=== PATIENT | male | born 1955 | race Caucasian/White ===

== ENCOUNTER 2017-01-07 14:15 | Emergency (ER) | payer OTHER ==
[~2017-01-07] VITALS: Ht 188 cm; Wt 73.0 kg
[2017-01-07 14:21] VITALS: BP 167/96; PULSE 73; RESP 18; TEMP 97.6; O2SAT 98
--- NOTE | 2017-01-07 15:06 | PD ---
HPI Chief Complaint: OD/ Ingestion Time Seen by Provider: 14:56 Travel History International Travel<30 days: No Contact w/Intl Traveler<30days: No Traveled to known affect area: No History of Present Illness HPI 61-year-old male was brought in by EMS after patient was found unresponsive at the friend's house. Patient states that he was drinking alcohol and smoking week this morning. Patient stated that he passed out. Patient states that he hit the forehead during the episode. Patient stated that is a mild aching headache on the left forehead. Patient denies any visual change. Patient denies any neck pain. Patient denies any chest pain or shortness of breath. Patient denies abdominal pain. Patient denies any focal weakness or numbness of extremity. Patient denies any other illicit drug abuse. Patient was given Narcan at the scene by EMS with complete covering of the mental status. PFSH Past Medical History Medical History: Denies Significant Hx Cancer: No Cardiovascular Problems: No Diminished Hearing: No Endocrine: No Gastrointestinal Disorders: No Genitourinary: No Hepatitis: Yes (c) Immune Disorder: No Implanted Vascular Access Dvce: No Musculoskeletal: Yes Neurologic: No Psychiatric: No Reproductive: No Respiratory: Yes ("JUST HAD PNEUMONIA") Influenza Vaccination: No PNEUMOCCOCAL Vaccine (Year): 1 Past Surgical History Other Surgery: No Social History Alcohol Use: Yes (BEER DAILY) Tobacco Use: Yes (1/2 PPD) Substance Use: Yes (MARIJUANA) Allergies-Medications (Allergen,Severity, Reaction): Coded Allergies: Codeine (Verified Allergy, Severe, Hives, 01/07/17) Tylenol (Verified Adverse Reaction, Intermediate, Nausea/Vomiting, 01/07/17 ) *MDRO Multi-Drug Resistant Organism (Verified Adverse Reaction, Unknown, ) 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 Reported Meds & Prescriptions Reported Meds & Active Scripts Active No Active Prescriptions or Reported Medications Review of Systems General / Constitutional: No: Fever Eyes: No: Visual changes HENT: Positive: Headaches Cardiovascular: No: Chest Pain or Discomfort Respiratory: No: Shortness of Breath Gastrointestinal: No: Abdominal Pain Genitourinary: No: Dysuria Musculoskeletal: No: Pain Skin: No Rash Neurologic: No: Weakness Psychiatric: No: Depression Endocrine: No: Polydipsia Hematologic/Lymphatic: No: Easy Bruising Physical Exam Narrative GENERAL: Well-nourished, well-developed patient. SKIN: Warm and dry. HEAD: Normocephalic. EYES: No scleral icterus. No injection or drainage. Pupils 2 mm equal reactive. NECK: Supple, trachea midline. No JVD or lymphadenopathy. CARDIOVASCULAR: Regular rate and rhythm without murmurs, gallops, or rubs. RESPIRATORY: Breath sounds equal bilaterally. No accessory muscle use. GASTROINTESTINAL: Abdomen soft, non-tender, nondistended. MUSCULOSKELETAL: No cyanosis, or edema. BACK: Nontender without obvious deformity. No CVA tenderness. Neurologic exam normal. Data Data Last Documented VS Vital Signs Date Time Temp Pulse Resp B/P Pulse Ox O2 Delivery O2 Flow Rate FiO2 01/07/17 15:16 73 18 130/82 97 Room Air 01/07/17 14:21 97.6 MDM Medical Decision Making Medical Screen Exam Complete: Yes Emergency Medical Condition: Yes Differential Diagnosis Differential diagnosis including substance-induced mood disorder, electrolyte abnormality, dehydration, TIA, CVA. Narrative Course 61-year-old male with transient altered mental status. Patient admits to alcohol and pot this morning. Patient responded to Narcan. Patient refused any treatment including x-ray or blood test today. Patient wants to leave. Diagnosis Primary Impression: Syncope Qualified Code: R55 - Syncope, unspecified syncope type Patient Instructions: General Instructions Additional Instructions: Patient refused workup today. Patient advised to follow-up with local physician. Return as needed. Med/Other Pt SpecificInfo: No Change to Meds Scripts No Active Prescriptions or Reported Meds Disposition: 01 DISCHARGE HOME Condition: Stable Giacomo Lee MD Jan 07, 2017 15:06
[2017-01-07 15:16] VITALS: BP 130/82; PULSE 73; RESP 18; O2SAT 97
== END 2017-01-07 15:40 | disposition home or self-care (01) ==
LOC: NEPA 14:15
DX: R55 Syncope and collapse (principal); R51 Headache; F17.210 Nicotine dependence, cigarettes, uncomplicated
CPT/HCPCS: 99284

== ENCOUNTER 2017-02-28 23:00 | Observation (INO) | payer OTHER ==
[~2017-02-28] VITALS: Ht 182.9 cm; Wt 78.5 kg
[2017-02-28 23:09] VITALS: BP 166/86; PULSE 128; RESP 26; TEMP 103; O2SAT 96
[2017-02-28] MEDS ORDERED: SODIUM CHLOR 0.9% 1000 ML INJ 1,000 ML IV ONE (23:30)
[2017-02-28] MEDS ORDERED: ONDANSETRON HCL 4 MG/2 ML VIAL IV ONE (23:30)
[2017-02-28] MEDS ORDERED: VANCOMYCIN INJ 1,000 MG in SODIUM CHLOR 0.9% 250 ML INJ 250 ML IV ONE (23:30)
[2017-02-28] MEDS ORDERED: PIPERACIL-TAZO 3.375 GM PREMIX 50 ML IV ONE (23:30)
[2017-02-28 23:32] VITALS: O2SAT 96
--- NOTE | 2017-02-28 23:36 | PD ---
HPI Chief Complaint: Altered Mental Status Time Seen by Provider: 23:08 Travel History International Travel<30 days: No Contact w/Intl Traveler<30days: No Traveled to known affect area: No History of Present Illness HPI The patient is a 61 year old male who presents to the [facility] emergency department with a history of reportedly not feeling well over the last 2-3 days. According to ambulance services the patient had been experiencing confusion today, thus ambulance services were called. It is unclear who called ambulance services. The patient on arrival is oriented to person, place, and time, however he is drowsy and has difficulty providing his history. He is tremulous on examination and tachycardic. The patient's temperature is reportedly 103. The patient's blood sugar prior to arrival was reportedly 91. The patient has emesis along his clothes and the right side of his ruano. The patient upon ambulance services arrival was noted to have wheezing. The patient reports that he smokes a pack of cigarettes per day. The patient en route to this facility was given 3 albuterol nebulizer treatments. The patient reportedly drank 3 alcoholic beverages today. The patient is drowsy on arrival. The patient has difficulty staying awake to answer questions. He continually has to be redirected and awakened to follow commands. Therefore, the patient's history is limited and was reviewed through the electronic medical record. [facility] Past Medical History Narrative Medical The patient's past medical history is significant for hepatitis C, tobacco use, history of pneumonia. Cancer: No Cardiovascular Problems: No Diminished Hearing: No Endocrine: No Gastrointestinal Disorders: No Genitourinary: No Hepatitis: Yes (c) Immune Disorder: No Implanted Vascular Access Dvce: No Musculoskeletal: Yes Neurologic: No Psychiatric: No Reproductive: No Respiratory: Yes ("JUST HAD PNEUMONIA") PNEUMOCCOCAL Vaccine (Year): 1 ?: Not Past Surgical History Surgical History: No Previous Surgery Other Surgery: No Social History Alcohol Use: Yes (BEER DAILY) Tobacco Use: Yes (1/2 PPD) Substance Use: Yes (MARIJUANA) Allergies-Medications (Allergen,Severity, Reaction): Coded Allergies: Codeine (Verified Allergy, Severe, Hives, 01/07/17) Tylenol (Verified Adverse Reaction, Intermediate, Nausea/Vomiting, 01/07/17 ) *MDRO Multi-Drug Resistant Organism (Verified Adverse Reaction, Unknown, ) 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 Reported Meds & Prescriptions Reported Meds & Active Scripts Active No Active Prescriptions or Reported Medications Review of Systems Except as stated in HPI: all other systems reviewed are Neg General / Constitutional: Positive: Fever Eyes: No: Visual changes HENT: Positive: Congestion, No: Headaches, Neck Stiffness, Neck Pain Cardiovascular: Positive: Dyspnea on exertion, No: Chest Pain or Discomfort Respiratory: Positive: Cough, Shortness of Breath, Wheezing Gastrointestinal: Positive: Nausea, Vomiting, No: Abdominal Pain Genitourinary: No: Dysuria Musculoskeletal: No: Pain Skin: No Rash Neurologic: Positive: Weakness (generalized weakness), Tremor, Change in Mentation, No: Focal Abnormalities, Slurred Speech, Sensory Disturbance Psychiatric: No: Depression Endocrine: No: Polydipsia Hematologic/Lymphatic: No: Easy Bruising Physical Exam Narrative General: The patient is a well-developed well-nourished male, in no acute distress. Head and Neck exam: Head is normocephalic atraumatic. Eyes: EOMI, pupils are equal round and reactive to light. Nose: Midline septum with pink mucous membranes Mouth: Dentition unremarkable. Moist mucus membranes. Posterior oropharynx is not erythematous. No tonsillar hypertrophy. Uvula midline. Airway patent. The patient is noted to have emesis that is dried in the right side of his ruano. Neck: No palpable lymphadenopathy. No nuchal rigidity. No thyromegaly. Cardiovascular: Sinus tachycardia in the 1 teens to 120s without murmurs, gallops, or rubs. No pulse deficit to the extremities and simultaneous auscultation and palpation of his radial artery. Lungs: Clear to auscultation bilaterally. No wheezes, rhonchi, or rales. The patient is in the process of receiving a nebulizer treatment on initial examination. Abdomen: Soft, without tenderness to palpation in all 4 quadrants of the abdomen. No guarding, rebound, or rigidity. No tenderness on palpation of McBurney's point. Normal bowel sounds are audible. Negative Jackson sign. Extremities: No clubbing, cyanosis, or edema. 2+ pulses in all 4 extremities. No calf tenderness on palpation. Back: No spinous process tenderness to palpation. No costovertebral angle tenderness to palpation. Neurologic Exam: The patient is oriented to person, place, time, and situation. The patient does however have difficulty staying awake to answer questions. The patient is tremulous on examination. The patient has cranial nerves II through XII that are intact. The patient's strength is 5 over 5 in all 4 extremities. The patient has intact sensation over all dermatomes. Skin Exam: No rash noted. Intact skin that is warm and dry. Data Data Last Documented VS Vital Signs Date Time Temp Pulse Resp B/P Pulse Ox O2 Delivery O2 Flow Rate FiO2 03/01/17 00:30 100.1 03/01/17 00:29 119 18 170/74 94 Nasal Cannula 4 Orders Electrocardiogram (02/28/17 23:18) Complete Blood Count With Diff (02/28/17 23:18) Comprehensive Metabolic Panel (02/28/17 23:18) Creatine Kinase (Cpk) (02/28/17 23:18) Ckmb (Isoenzyme) Profile (02/28/17 23:18) Troponin I (02/28/17 23:18) Prothrombin Time / Inr (Pt) (02/28/17 23:18) Act Partial Throm Time (Ptt) (02/28/17 23:18) Blood Culture (02/28/17 23:18) C-Reactive Protein (Crp) (02/28/17 23:18) Lipase (02/28/17 23:18) Urinalysis - C+S If Indicated (02/28/17 23:18) Magnesium (Mg) (02/28/17 23:18) Ammonia (02/28/17 23:18) Influenzae A/B Antigen (02/28/17 23:18) Chest, Single Ap (02/28/17 23:18) Ct Brain W/O Iv Contrast(Rout) (02/28/17 23:18) Iv Access Insert/Monitor (02/28/17 23:18) Ecg Monitoring (02/28/17 23:18) Oximetry (02/28/17 23:18) Drug Screen, Random Urine (02/28/17 23:18) Alcohol (Ethanol) (02/28/17 23:18) Salicylates (Aspirin) (02/28/17 23:18) Tylenol (Acetaminophen) (02/28/17 23:18) Sodium Chlor 0.9% 1000 Ml Inj (Ns 1000 M (02/28/17 23:30) Ondansetron Inj (Zofran Inj) (02/28/17 23:30) Lactic Acid Sepsis Protocol (02/28/17 23:18) Piperacil-Tazo 3.375 Gm Premix (Zosyn 3. (02/28/17 23:30) Vancomycin Inj (Vancomycin Inj) (02/28/17 23:30) Ibuprofen (Motrin) (02/28/17 23:45) Lactulose Liq (Lactulose Liq) (03/01/17 00:30) Sodium Chlor 0.9% 1000 Ml Inj (Ns 1000 M (03/01/17 00:30) CKMB (02/28/17 23:51) CKMB% (02/28/17 23:51) Admit Order (Ed Use Only) (03/01/17 01:27) Labs Laboratory Tests Test 02/28/17 02/28/17 03/01/17 23:15 23:51 01:17 White Blood Count 5.3 TH/MM3 Red Blood Count 4.43 MIL/MM3 Hemoglobin 15.3 GM/DL Hematocrit 44.8 % Mean Corpuscular Volume 101.1 FL Mean Corpuscular Hemoglobin 34.5 PG Mean Corpuscular Hemoglobin 34.1 % Concent Red Cell Distribution Width 13.0 % Platelet Count 88 TH/MM3 Mean Platelet Volume 9.5 FL Neutrophils (%) (Auto) 70.4 % Lymphocytes (%) (Auto) 18.4 % Monocytes (%) (Auto) 10.3 % Eosinophils (%) (Auto) 0.1 % Basophils (%) (Auto) 0.8 % Neutrophils # (Auto) 3.7 TH/MM3 Lymphocytes # (Auto) 1.0 TH/MM3 Monocytes # (Auto) 0.5 TH/MM3 Eosinophils # (Auto) 0.0 TH/MM3 Basophils # (Auto) 0.0 TH/MM3 CBC Comment AUTO DIFF Differential Total Cells 100 Counted Neutrophils % (Manual) 68 % Band Neutrophils % 9 % Lymphocytes % 12 % Monocytes % 9 % Neutrophils # (Manual) 4.2 TH/MM3 Metamyelocytes 2 % Differential Comment FINAL DIFF MANUAL Platelet Estimate LOW Platelet Morphology Comment NORMAL Red Cell Morphology Comment NORMAL Prothrombin Time 11.0 SEC Prothromb Time International 1.0 RATIO Ratio Activated Partial 28.6 SEC Thromboplast Time Lactic Acid Level 2.3 mmol/L Ammonia 62 MCMOL/L Salicylates Level LESS THAN 1.7 MG/DL Sodium Level 136 MEQ/L Potassium Level 3.7 MEQ/L Chloride Level 102 MEQ/L Carbon Dioxide Level 25.2 MEQ/L Anion Gap 9 MEQ/L Blood Urea Nitrogen 13 MG/DL Creatinine 0.89 MG/DL Estimat Glomerular Filtration 86 ML/MIN Rate Random Glucose 98 MG/DL Calcium Level 8.2 MG/DL Magnesium Level 1.7 MG/DL Total Bilirubin 0.4 MG/DL Aspartate Amino Transf 74 U/L (AST/SGOT) Alanine Aminotransferase 62 U/L (ALT/SGPT) Alkaline Phosphatase 49 U/L Total Creatine Kinase 361 U/L Creatine Kinase MB 1.1 NG/ML Creatine Kinase MB % 0.3 % Troponin I 0.04 NG/ML C-Reactive Protein 0.69 MG/DL Total Protein 6.8 GM/DL Albumin 2.9 GM/DL Lipase 73 U/L Acetaminophen Level LESS THAN 2.0 MCG/ML Ethyl Alcohol Level LESS THAN 3 MG/DL Urine Opiates Screen POS Urine Barbiturates Screen NEG Urine Amphetamines Screen NEG Urine Benzodiazepines Screen NEG Urine Cocaine Screen NEG Urine Cannabinoids Screen POS MDM Medical Decision Making Medical Screen Exam Complete: Yes Emergency Medical Condition: Yes Medical Record Reviewed: Yes Interpretation(s) Last Impressions Head CT 02/28/172317 Signed Impressions: Service Date/Time: Tuesday, February 28, 2017 23:34 - CONCLUSION: 1. No acute intracranial abnormality. 2. Chronic paranasal sinus disease. Aldo Renteria Jr., MD Chest X-Ray 02/28/172317 Signed Impressions: Service Date/Time: Tuesday, February 28, 2017 23:44 - CONCLUSION: Left lower lobe infiltrate. Aldo Renteria Jr., MD Differential Diagnosis Pneumonia, versus hepatic encephalopathy, versus sepsis related encephalopathy, versus encephalitis, versus intracranial abnormality, versus intoxication, versus withdrawal syndrome Narrative Course During the course of the patients emergency department visit, the patients history, examination, and differential diagnosis were reviewed with the patient. The patient had IV access obtained and blood work sent for analysis. The patient was placed on a environmental monitoring technician with oximetry and blood pressure monitoring. An EKG was done on arrival. The patient's EKG reveals a sinus rhythm, sinus tachycardia with a rate of 126, no acute ST segment elevation or depression. A chest x-ray, pelvic x-ray was ordered. Blood cultures 2 were ordered. Influenza swab was ordered. Lactic acid will be sent per sepsis protocol. The patient was initially provided normal saline 1 L IV fluid bolus, Zosyn 3.375 g IV, vancomycin 1 g IV, Zofran 4 mg IV times one. The patient was given ibuprofen for fever. The patients laboratory studies were reviewed and remarkable for a white count of 5.3, hemoglobin 15.3, platelets 88 with 70.4 neutrophils, monocytes 10.3, CMP is remarkable for a GFR of 86, calcium 8.2, AST 74, CPK 361, C-reactive protein 0.69, lipase 73, ammonia level elevated at 62, therefore lactulose was administered. Lactic acid initially 2.3 which went down to 0.9 on repeat analysis after second liter of normal saline IV fluids. PT PTT within normal limits. Urine drug screen is positive for opiates, cannabinoids, acetaminophen less than 2, alcohol level less than 3, salicylate less than 1.7. Radiology studies were reviewed and remarkable for CT scan of the brain shows no acute intracranial abnormality, except for chronic paranasal sinus inflammation. Chest x-ray reveals a left lower lobe infiltrate. The patients results were discussed with the patient, including the plan of care. I explained that further testing and/ or monitoring is indicated based on the patients history, examination, and/ or laboratory findings. Therefore, I recommended admission for additional evaluation. The patient expressed understanding and was agreeable with this plan. The patient was admitted to the hospital in guarded condition and [facility] Critical Care Narrative Aggregate critical care time was 33 minutes. Time to perform other separately billable procedures was not included in the critical care time. My time did not include minutes spent treating any other patients simultaneously or on activities that did not directly contribute to the patient's treatment. The services I provided to this patient were to treat and/or prevent clinically significant deterioration that could result in: Cardiovascular collapse, versus respiratory failure I provided critical care services requiring my management, as noted below: Chart data review, documentation time, medication orders and management, vital sign assessments/reviewing monitor data, ordering and reviewing lab tests, ordering and interpreting/reviewing x-rays and diagnostic studies, care of the patient and discussion of the patient with the admitting physicians. Physician Communication Physician Communication The patient's case was discussed with Dr. Lopez who did agree to admit the patient for further evaluation and treatment at this time. Diagnosis Primary Impression: Altered mental status Qualified Code: R41.0 - Delirium Additional Impressions: Pneumonia Qualified Code: J18.1 - Pneumonia of left lower lobe due to infectious organism Hepatic encephalopathy Admitting Information Admitting Physician Requests: Admit Scripts No Active Prescriptions or Reported Meds Lina Bryson MD February 28, 2017 23:36
--- NOTE | 2017-02-28 23:44 | RADRPT ---
EXAM DATE/TIME: 02/28/2017 23:34 [facility] COMPARISON: CT BRAIN W/O CONTRAST, October 20, 2016, 21:00. INDICATIONS : Altered mental status. RADIATION DOSE: 55.75 CTDIvol (mGy) MEDICAL HISTORY : Hepatitis C. SURGICAL HISTORY : None. ENCOUNTER: Initial ACUITY: 1 day PAIN SCALE: 0/10 LOCATION: cranial TECHNIQUE: Multiple contiguous axial images were obtained of the head. Using automated exposure control and adj ustment of the mA and/or kV according to patient size, radiation dose was kept as low as reasonably a chievable to obtain optimal diagnostic quality images. FINDINGS: CEREBRUM: The ventricles are normal for age. No evidence of midline shift, mass lesion, hemorrhage or acute in farction. No extra-axial fluid collections are seen. POSTERIOR FOSSA: The cerebellum and brainstem are intact. The 4th ventricle is midline. The cerebellopontine angle i s unremarkable. EXTRACRANIAL: The visualized portion of the orbits is intact. Mucosal thickening is seen involving the ethmoid air cells and sphenoid sinuses bilaterally. Complete opacification of the left frontal sinus. Mastoid air cells are clear. SKULL: The calvaria is intact. No evidence of skull fracture. CONCLUSION: 1. No acute intracranial abnormality. 2. Chronic paranasal sinus disease. Aldo Renteria Jr., MD on February 28, 2017 at 23:41 Board Certified Radiologist. This report was verified electronically.
[2017-02-28] MEDS ORDERED: IBUPROFEN 400 MG TAB PO ONE (23:45)
[2017-02-28 23:46] LABS: AUTOMATED NEUTROPHIL # 3.7 TH/MM3 (1.8-7.7); BASOPHIL % 0.8 % (0.0-2.0); EOSINOPHIL % 0.1 % (0.0-4.0); HEMATOCRIT 44.8 % (39.0-51.0); HEMO FLAGS AUTO DIFF; LYMPH % 18.4 % (9.0-44.0); MEAN CELL VOLUME 101.1 FL (80.0-100.0); MEAN CORPUSCULAR HEMOGLOBIN 34.5 PG (27.0-34.0); MEAN CORPUSCULAR HGB CONC 34.1 % (32.0-36.0); MONO % 10.3 % (0.0-8.0); NEUT % 70.4 % (16.0-70.0); PLATELET COUNT 88 TH/MM3 (150-450); RED BLOOD COUNT 4.43 MIL/MM3 (4.50-5.90); WHITE BLOOD COUNT 5.3 TH/MM3 (4.0-11.0)
[2017-03-01] VITALS (29 sets, daily range): BP systolic 107–170; BP diastolic 55–86; PULSE 57–119; RESP 16–18; TEMP 97.5–100.1; O2SAT 91–99
--- NOTE | 2017-03-01 | RADRPT ---
EXAM DATE/TIME: 02/28/2017 23:44 [facility] COMPARISON: CHEST SINGLE AP, June 21, 2012, 4:51. INDICATIONS : Fever. MEDICAL HISTORY : Hepatitis C. SURGICAL HISTORY : None. ENCOUNTER: Initial ACUITY: 1 day PAIN SCORE: 0/10 LOCATION: Bilateral chest FINDINGS: A single portable frontal view the chest is motion degraded. A left lower lobe infiltrate noted. Righ t lung is clear. No effusions. Heart is normal in size. CONCLUSION: Left lower lobe infiltrate. Aldo Renteria Jr., MD on February 28, 2017 at 23:58 Board Certified Radiologist. This report was verified electronically.
[2017-03-01 00:13] LABS: APTT (PATIENT) 28.6 SEC (24.3-30.1)
[2017-03-01] MEDS ORDERED: LACTULOSE SYRUP 20 GM/30 ML CUP PO ONE (00:30)
[2017-03-01] MEDS ORDERED: SODIUM CHLOR 0.9% 1000 ML INJ 1,000 ML IV ONE (00:30)
[2017-03-01 00:32] LABS: ALT (GPT) 62 U/L (12-78); ANION GAP 9 MEQ/L (5-15); AST (GOT) 74 U/L (15-37); BICARBONATE 25.2 MEQ/L (21.0-32.0); BLOOD UREA NITROGEN 13 MG/DL (7-18); CHLORIDE 102 MEQ/L (98-107); GLOMERULAR FILTRATION RATE 86 ML/MIN (>89); MAGNESIUM 1.7 MG/DL (1.5-2.5); POTASSIUM 3.7 MEQ/L (3.5-5.1); SODIUM (NA) 136 MEQ/L (136-145)
[2017-03-01 00:34] LABS: ACETAMINOPHEN LESS THAN 2.0 MCG/ML (10.0-30.0); ALKALINE PHOSPHATASE 49 U/L (45-117); CREATINE KINASE 361 U/L (39-308); TOTAL BILIRUBIN ADULT 0.4 MG/DL (0.2-1.0)
[2017-03-01 00:47] LABS: CKMB 1.1 NG/ML (0.5-3.6)
[2017-03-01 00:50] LABS: BANDS 9 % (0-6); METAMYELOCYTES 2 % (0-1); NEUTROPHIL # MANUAL DIFF 4.2 TH/MM3 (1.8-7.7); POLYS (SEG NEUTROPHILS) 68 % (16-70); SCAN/DIFF FINAL DIFF MANUAL; WBC DIFF SAMPLE 100
[2017-03-01 00:51] LABS: PLATELET ESTIMATE SMEAR LOW (NORMAL); PLATELET MORPHOLOGY NORMAL (NORMAL)
[2017-03-01 01:40] LABS: LACTIC ACID GHOST NOT REPORTABLE
[2017-03-01 01:47] LABS: AMPHETAMINE, URINE NEG (NEG); BARBITURATES, URINE NEG (NEG); COCAINE, URINE NEG (NEG)
[2017-03-01] MEDS ORDERED: GLUCAGON 1 MG/ML VIAL OTHER PRN (02:00)
[2017-03-01] MEDS ORDERED: DEXTROSE 50% IN WATER 50 ML VIAL(D50) IV PUSH PRN (02:00)
[2017-03-01] MEDS ORDERED: THIAMINE HCL 100 MG TAB PO ONE ×3 (02:00→02:45)
[2017-03-01] MEDS ORDERED: SODIUM CHLORIDE 0.9% FLUSH 10 ML FLUSH IV FLUSH PRN (02:00)
[2017-03-01] MEDS ORDERED: NALOXONE HCL 0.4 MG/ML AMP IV PRN (02:00)
[2017-03-01] MEDS ORDERED: ONDANSETRON HCL 4 MG/2 ML VIAL IVP PRN (02:00)
--- NOTE | 2017-03-01 02:30 | HHI.HP ---
HPI Service [facility] Primary Care Physician Unknown Admission Diagnosis AMS, Pneumonia, hepatic encephalopathy Diagnoses: Travel History International Travel<30 Days: No Contact w/Intl Traveler <30 Da: No Traveled to Known Affected Are: No Sepsis Criteria SIRS Criteria (2 or more): Temp > 100.9 or < 96.8, Heart rate over 90, RR > 20 or PaCO2 < 32 History of Present Illness History from patient, ER physician communication, and review of medical records. Patient reported that he came to the hospital because he was having headaches for the past 3 days. He reports coughing episodes for those 3 days as well with brownish color sputum. He states he was drenched in sweats most of the time. He reports of nausea and dry heaving episodes. He states he was also having vomiting on and off for the past one week or so. He states he has been extremely weak to cause of all the above and just could not get out of bed for past few days. He reports that his vomitus was also dark brown in color. He denies abdominal pains with it initially. Patient reports of diarrhea but then stated that his diarrhea is chronic likely from alcoholic use. Patient is known to me from his prior hospitalization in 2010. He was initially quite sick upon initial arrival to ER. He was drenched in sweat, with saliva all around his face. However by the time he sees me, patient is entirely awake alert oriented and he even remembered me from his prior hospitalization. His ammonia level is mildly elevated Review of Systems Except as stated in HPI: all other systems reviewed are Neg Past Family Social History Past Medical History COPD Anxietytakes Clonopin Hepatitis C Chronic lymphocytopeniafrom liver failure Chronic alcohol abuse Chronic tobacco abuse Past Surgical History none Reported Medications Klonopin Allergies: Coded Allergies: Codeine (Verified Allergy, Severe, Hives, 01/07/17) Tylenol (Verified Adverse Reaction, Intermediate, Nausea/Vomiting, 01/07/17 ) *MDRO Multi-Drug Resistant Organism (Verified Adverse Reaction, Unknown, ) 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 Family History dad- dm mother- alcoholic Social History drinks about 2-4 beers a day smoke a pack a day or half a pack no drugs Physical Exam Vital Signs Vital Signs Date Time Temp Pulse Resp B/P Pulse Ox O2 Delivery O2 Flow Rate FiO2 03/01/17 00:30 100.1 03/01/17 00:29 119 18 170/74 94 Nasal Cannula 4 02/28/17 23:32 96 Nasal Cannula 02/28/17 23:13 96 Nasal Cannula 5 02/28/17 23:09 103.0 128 26 166/86 96 Physical Exam GENERAL: This is a well-nourished, well-developed patient, in no apparent distress. SKIN: No rashes, ecchymoses or lesions. Cool and dry. HEAD: Atraumatic. Normocephalic. No temporal or scalp tenderness. EYES: No scleral icterus. No injection or drainage. ENT: Nose without bleeding, purulent drainage or septal hematoma. Uvula midline. Airway patent. NECK: Trachea midline. Positive JVD. Supple, nontender, no meningeal signs. CARDIOVASCULAR: Tachycardic, regular rhythm without murmurs, gallops, or rubs. RESPIRATORY: Bilateral expiratory wheezing. No respiratory sensory muscles use. GASTROINTESTINAL: Abdomen soft, non-tender, nondistended. No guarding. MUSCULOSKELETAL: Extremities without clubbing, cyanosis, or edema. No calf tenderness. NEUROLOGICAL: Awake and alert. Motor and sensory grossly within normal limits. Normal speech. Laboratory Laboratory Tests Test 02/28/17 02/28/17 03/01/17 23:15 23:51 01:17 White Blood Count 5.3 Red Blood Count 4.43 Hemoglobin 15.3 Hematocrit 44.8 Mean Corpuscular Volume 101.1 Mean Corpuscular Hemoglobin 34.5 Mean Corpuscular Hemoglobin 34.1 Concent Red Cell Distribution Width 13.0 Platelet Count 88 Mean Platelet Volume 9.5 Neutrophils (%) (Auto) 70.4 Lymphocytes (%) (Auto) 18.4 Monocytes (%) (Auto) 10.3 Eosinophils (%) (Auto) 0.1 Basophils (%) (Auto) 0.8 Neutrophils # (Auto) 3.7 Lymphocytes # (Auto) 1.0 Monocytes # (Auto) 0.5 Eosinophils # (Auto) 0.0 Basophils # (Auto) 0.0 CBC Comment AUTO DIFF Differential Total Cells 100 Counted Neutrophils % (Manual) 68 Band Neutrophils % 9 Lymphocytes % 12 Monocytes % 9 Neutrophils # (Manual) 4.2 Metamyelocytes 2 Differential Comment FINAL DIFF MANUAL Platelet Estimate LOW Platelet Morphology Comment NORMAL Red Cell Morphology Comment NORMAL Prothrombin Time 11.0 Prothromb Time International 1.0 Ratio Activated Partial 28.6 Thromboplast Time Lactic Acid Level 2.3 Ammonia 62 Salicylates Level LESS THAN 1.7 Sodium Level 136 Potassium Level 3.7 Chloride Level 102 Carbon Dioxide Level 25.2 Anion Gap 9 Blood Urea Nitrogen 13 Creatinine 0.89 Estimat Glomerular Filtration 86 Rate Random Glucose 98 Calcium Level 8.2 Magnesium Level 1.7 Total Bilirubin 0.4 Aspartate Amino Transf 74 (AST/SGOT) Alanine Aminotransferase 62 (ALT/SGPT) Alkaline Phosphatase 49 Total Creatine Kinase 361 Creatine Kinase MB 1.1 Creatine Kinase MB % 0.3 Troponin I 0.04 C-Reactive Protein 0.69 Total Protein 6.8 Albumin 2.9 Lipase 73 Acetaminophen Level LESS THAN 2.0 Ethyl Alcohol Level LESS THAN 3 Urine Opiates Screen POS Urine Barbiturates Screen NEG Urine Amphetamines Screen NEG Urine Benzodiazepines Screen NEG Urine Cocaine Screen NEG Urine Cannabinoids Screen POS Date/Time Procedure Status Source Growth 02/28/17 23:51 Influenza Types A,B Antigen (FREDERICK) - Final Complete Nasal Aspirate NEGATIVE FOR FLU A AND B ANTIGEN.... 02/28/17 23:30 Aerobic Blood Culture Received Blood Peripheral Pending 02/28/17 23:30 Anaerobic Blood Culture Received Blood Peripheral Pending Result Diagram: 02/28/175 02/28/17 2351 Imaging Last [address] 02/28/172317 Signed Impressions: Service Date/Time: Tuesday, February 28, 2017 23:34 - CONCLUSION: 1. No acute intracranial abnormality. 2. Chronic paranasal sinus disease. Aldo Renteria Jr., MD Chest X-Ray 02/28/172317 Signed Impressions: Service Date/Time: Tuesday, February 28, 2017 23:44 - CONCLUSION: Left lower lobe infiltrate. Aldo Renteria Jr., MD Septic Shock Reassessment Peripheral Pulses: Absent Left Posterior Tibial Assessment and Plan Assessment and Plan Impression: Sepsis Pneumoniasuspect aspiration pneumonia although x-ray is revealing left lower lobe. Nausea/vomiting/diarrhealikely all chronic and alcohol-induced. We will watch for further episodes. Bandemia Lactic acid acidosis Elevated ammonia levelwith preserved mental status COPD Anxietytakes Clonopin Hepatitis C Chronic lymphocytopeniafrom liver failure Chronic alcohol abuse Chronic tobacco abuse Plan: Patient was given normal saline boluses in ER. He was given vancomycin and Zosyn in ER. Will start on clindamycin 900 mg IV every 8 hours. Lactobacillus. Lactic acid level post hydration. Watch for occult withdrawal. Thiamine 100 with grams by mouth daily. Ativan 1 mg IV every 2 hours when necessary for withdrawal levels. Alcohol withdrawal nebs when necessary. EKGpersonally reviewed. No acute ST-T changes. Sinus tachycardia. Chest x-raypersonally reviewed. No pneumothorax/pulmonary edema. Left lower lobe airspace diseaselikely infiltrates. DVT prophylaxiswith SCD. GI prophylaxis on pantoprazole. Discussed Condition With Patient, ER physician, ER nurse Physician Certification 2 Midnight Certification Type: Admission for Inpatient Services Order for Inpatient Services The services are ordered in accordance with Medicare regulations or non- Medicare payer requirements, as applicable. In the case of services not specified as inpatient-only, they are appropriately provided as inpatient services in accordance with the 2-midnight benchmark. Estimated LOS (days): 3 days is the estimated time the patient will need to remain in the hospital, assuming treatment plan goals are met and no additional complications. Post-Hospital Plan: Home Angelo Lopez MD March 01, 2017 02:30
[2017-03-01] MEDS ORDERED: RESP: ALBUTEROL 2.5 MG/IPRATROPIUM 0.5 MG NEB (PRN) NEB (02:45)
[2017-03-01] MEDS ORDERED: MORPHINE SULFATE 4 MG/ML INJ IV PUSH ONE (02:45)
[2017-03-01] MEDS: RESP: ALBUTEROL 2.5 MG/IPRATROPIUM 0.5 MG NEB (SCH) NEB ×3 (05:06→19:42)
[2017-03-01] MEDS ORDERED: INSULIN ASPART SUPPLEMENTAL SCALE SQ SCH (07:00)
[2017-03-01] MEDS: CLINDAMYCIN INJ 900 MG in SODIUM CHLORIDE 0.9% INJ 100 ML IV SCH ×3 (08:49→22:07)
[2017-03-01] MEDS: THIAMINE HCL 100 MG TAB PO SCH (08:50)
[2017-03-01] MEDS: SODIUM CHLORIDE 0.9% FLUSH 10 ML FLUSH IV FLUSH SCH ×2 (08:50→22:07)
[2017-03-01] MEDS: LACTOBACILLUS ACIDOPHILUS TAB PO SCH ×3 (08:50→17:14)
[2017-03-01] MEDS ORDERED: THIAMINE HCL 100 MG TAB PO SCH (09:00)
[2017-03-01] MEDS: LORazepam 2 MG/ML VIAL IV PUSH PRN ×3 (09:30→22:07)
--- NOTE | 2017-03-01 09:50 | HHI.PR ---
Subjective Remarks Follow up headache, productive cough, nausea and vomiting. Patient seen and examined today. Patient complaints of continued productive cough with brown colored phlegm. Complaint of associated chest soreness due to cough. He denies any further nausea and vomiting since arrival, tolerating breakfast this morning. Denies any chills, fever, diaphoresis, or diarrhea. Positive BM today. Denies any further headache. Objective Vitals Vital Signs Date Time Temp Pulse Resp B/P Pulse Ox O2 Delivery O2 Flow Rate FiO2 03/01/17 09:00 81 03/01/17 08:00 79 03/01/17 07:45 71 03/01/17 07:45 97.5 72 16 122/74 98 03/01/17 06:31 74 18 114/64 93 Nasal Cannula 03/01/17 05:46 78 18 112/59 95 Nasal Cannula 03/01/17 05:16 97 Nasal Cannula 4.00 03/01/17 04:55 70 18 107/55 97 Nasal Cannula 4 03/01/17 03:23 84 16 125/69 95 Nasal Cannula 4 03/01/17 02:37 92 18 117/86 99 Room Air 03/01/17 00:30 100.1 03/01/17 00:29 119 18 170/74 94 Nasal Cannula 4 02/28/17 23:32 96 Nasal Cannula 02/28/17 23:13 96 Nasal Cannula 5 02/28/17 23:09 103.0 128 26 166/86 96 Result Diagram: 02/28/17231402/28/17 2351 Imaging Last Impressions Head CT 02/28/172317 Signed Impressions: Service Date/Time: Tuesday, February 28, 2017 23:34 - CONCLUSION: 1. No acute intracranial abnormality. 2. Chronic paranasal sinus disease. Aldo Renteria Jr., MD Chest X-Ray 02/28/172317 Signed Impressions: Service Date/Time: Tuesday, February 28, 2017 23:44 - CONCLUSION: Left lower lobe infiltrate. Aldo Renteria Jr., MD Objective Remarks GENERAL: Well-nourished, well-developed patient in NAD. SKIN: Warm and dry. No rash. HEENT: Normocephalic. Atraumatic. Pupils equal and round. No scleral icterus. No injection or drainage. No nasal bleeding or discharge. Mucous membranes pink and moist. Supple. Trachea midline. CARDIOVASCULAR: Regular rate and rhythm. S1, S2 noted. No murmur appreciated. RESPIRATORY: No accessory muscle use. CTA. Breath sounds equal bilaterally. GASTROINTESTINAL: Abdomen soft, non-tender, nondistended. Normoactive bowel sounds x4. MUSCULOSKELETAL: No obvious deformities. Extremities without clubbing, cyanosis , or edema. NEUROLOGICAL: Awake and alert. No obvious cranial nerve deficits. Motor grossly within normal limits. Normal speech. PSYCHIATRIC: Appropriate mood and affect; insight and judgment normal. Urinary Catheter: No Vascular Central Line Catheter: No A/P Assessment and Plan Mr. Stout is a 61-year-old male with a known history of COPD, anxiety, hepatitis C, chronic ETOH abuse and tobacco abuse who presented to the ED with complaints of headache and productive cough x 3 days with episodes of nausea and vomiting and associated diaphoresis and weakness. Sepsis, suspect source of left lower lobe pneumonia. - Chest x-ray reviewed by me, left lower lobe infiltrate. - Blood cultures pending, NGTD. - Nasal aspirate negative for influenza. - WBC WNL. - Lactic acid initially 2.3, now 0.9 on 03/01. s/p 2 L NS IV bolus - Initially tachycardic, resolved. Heart rate presently 81. - Initially 103 fever. Afebrile at this time. Monitor. - Zosyn 3.375 IV x 1 given in ED. Vancomycin 1 g IV x 1 in ED. - Continue Clindamycin 900 mg IV Q 6h and Lactobacillus. - BMP and CBC in am. Chronic obstructive pulmonary disease with associated productive cough - DuoNebs scheduled and PRN. - Mucinex 600 mg PO BID. Nausea and vomiting, resolved. - Zofran PRN. - Encourage PO intake as tolerated. Alcohol abuse, chronic with presence of macrocytosis - MCV 101.1. - Ammonia 62 on presentation. Lactulose 30 ml PO x 1 given in ED. - Monitor for withdrawal symptoms. - Monitor for seizures. - Ativan PRN - Continue thiamine. Add Folic acid and multivitamin. Tobacco use: Encourage cessation GI Prophylaxis: Protonix PO DVT prophylaxis: SCDs Amira Corado March 01, 2017 09:50 Amira Corado March 01, 2017 09:50
--- NOTE | 2017-03-01 11:15 | EKG ---
Date Performed: 02/28/2017 Time Performed: 23:17:41 PTAGE: 61 years EKG: SINUS TACHYCARDIA ABNORMAL RHYTHM ECG INTERPRETATION BASED ON A DEFAULT AGE OF 40 YEARS PREVIOUS TRACING : 06/21/2012 04.41 DOCTOR: Ge Gomez Interpretating Date/Time 03/01/2017 11:13:22
[2017-03-01] MEDS: FOLIC ACID 1 MG TAB PO SCH (11:53)
[2017-03-01] MEDS: MULTIVITAMINS/MINERALS THERAPEUTIC TAB PO SCH (11:53)
[2017-03-01] MEDS: guaiFENesin E.R. 600 MG TAB PO SCH (22:07)
[2017-03-02] VITALS (8 sets, daily range): BP systolic 129–141; BP diastolic 75–90; PULSE 55–72; RESP 16–18; TEMP 97.6–97.7; O2SAT 93–96
[2017-03-02] MEDS: RESP: ALBUTEROL 2.5 MG/IPRATROPIUM 0.5 MG NEB (SCH) NEB (03:19)
[2017-03-02] MEDS: CLINDAMYCIN INJ 900 MG in SODIUM CHLORIDE 0.9% INJ 100 ML IV SCH ×2 (03:26→09:00)
[2017-03-02 05:28] LABS: BASOPHIL % 0.2 % (0.0-2.0); EOSINOPHIL % 0.3 % (0.0-4.0); HEMATOCRIT 40.5 % (39.0-51.0); LYMPH % 32.8 % (9.0-44.0); LYMPHOCYTE # 1.7 TH/MM3 (1.0-4.8); MEAN CELL VOLUME 101.1 FL (80.0-100.0); MEAN CORPUSCULAR HEMOGLOBIN 35.3 PG (27.0-34.0); MEAN CORPUSCULAR HGB CONC 34.9 % (32.0-36.0); MONO % 8.3 % (0.0-8.0); NEUT % 58.4 % (16.0-70.0); PLATELET COUNT 75 TH/MM3 (150-450); RED CELL DISTRIBUTION WIDTH 12.9 % (11.6-17.2); WHITE BLOOD COUNT 5.1 TH/MM3 (4.0-11.0)
[2017-03-02 05:29] LABS: HEMO FLAGS AUTO DIFF
[2017-03-02 05:53] LABS: BICARBONATE 28.6 MEQ/L (21.0-32.0); POTASSIUM 3.8 MEQ/L (3.5-5.1)
[2017-03-02] MEDS ORDERED: PANTOPRAZOLE SOD 40 MG DELAYED RELEASE TAB PO SCH (06:00)
[2017-03-02 07:12] LABS: BANDS 14 % (0-6); BASOPHILS 1 % (0-2); NEUTROPHIL # MANUAL DIFF 3.4 TH/MM3 (1.8-7.7); PLATELET ESTIMATE SMEAR LOW (NORMAL); PLATELET MORPHOLOGY NORMAL (NORMAL); POLYS (SEG NEUTROPHILS) 53 % (16-70); SCAN/DIFF FINAL DIFF MANUAL; WBC DIFF SAMPLE 100
[2017-03-02] MEDS ORDERED: VITA100T2 PO (08:16)
[2017-03-02] MEDS ORDERED: MUCI600T PO (08:16)
[2017-03-02] MEDS ORDERED: FOLI1TAB4 PO (08:16)
[2017-03-02] MEDS ORDERED: CLIN1CAP6 PO (08:16)
[2017-03-02] MEDS: SODIUM CHLORIDE 0.9% FLUSH 10 ML FLUSH IV FLUSH SCH (09:00)
[2017-03-02] MEDS: MULTIVITAMINS/MINERALS THERAPEUTIC TAB PO SCH (09:44)
[2017-03-02] MEDS: LACTOBACILLUS ACIDOPHILUS TAB PO SCH (09:44)
[2017-03-02] MEDS: guaiFENesin E.R. 600 MG TAB PO SCH (09:44)
[2017-03-02] MEDS: THIAMINE HCL 100 MG TAB PO SCH (09:44)
[2017-03-02] MEDS: FOLIC ACID 1 MG TAB PO SCH (09:44)
--- NOTE | 2017-03-02 10:38 | HHI.DS ---
Discharge Summary Admission Date March 01, 2017 at 01:29 Discharge Date: March 02, 2017 Admitting Diagnosis AMS, Pneumonia, hepatic encephalopathy (1) Thrombocytopenia ICD Code: D69.6 Diagnosis: Secondary (2) Aspiration pneumonia ICD Code: J69.0 Diagnosis: Principal Procedures None Brief History - From Admission History from patient, ER physician communication, and review of medical records. Patient reported that he came to the hospital because he was having headaches for the past 3 days. He reports coughing episodes for those 3 days as well with brownish color sputum. He states he was drenched in sweats most of the time. He reports of nausea and dry heaving episodes. He states he was also having vomiting on and off for the past one week or so. He states he has been extremely weak to cause of all the above and just could not get out of bed for past few days. He reports that his vomitus was also dark brown in color. He denies abdominal pains with it initially. Patient reports of diarrhea but then stated that his diarrhea is chronic likely from alcoholic use. Patient is known to me from his prior hospitalization in 2010. He was initially quite sick upon initial arrival to ER. He was drenched in sweat, with saliva all around his face. However by the time he sees me, patient is entirely awake alert oriented and he even remembered me from his prior hospitalization. His ammonia level is mildly elevated CBC/BMP: 03/02/17 0403 03/02/17 0403 Significant Findings Laboratory Tests Test 02/28/17 02/28/17 03/01/17 03/02/17 23:15 23:51 01:17 04:03 Red Blood Count 4.43 MIL/MM3 4.00 MIL/MM3 (4.50-5.90) (4.50-5.90) Mean Corpuscular Volume 101.1 FL 101.1 FL (80.0-100.0) (80.0-100.0) Mean Corpuscular Hemoglobin 34.5 PG 35.3 PG (27.0-34.0) (27.0-34.0) Platelet Count 88 TH/MM3 75 TH/MM3 (150-450) (150-450) Neutrophils (%) (Auto) 70.4 % (16.0-70.0) Monocytes (%) (Auto) 10.3 % 8.3 % (0.0-8.0) (0.0-8.0) Band Neutrophils % 9 % (0-6) 14 % (0-6) Monocytes % 9 % (0-8) Metamyelocytes 2 % (0-1) Platelet Estimate LOW (NORMAL) LOW (NORMAL) Lactic Acid Level 2.3 mmol/L (0.4-2.0) Ammonia 62 MCMOL/L (11-32) Salicylates Level LESS THAN 1.7 MG/DL (2.8-20.0) Estimat Glomerular Filtration 86 ML/MIN (>89) Rate Calcium Level 8.2 MG/DL 8.2 MG/DL (8.5-10.1) (8.5-10.1) Aspartate Amino Transf 74 U/L (15-37) (AST/SGOT) Total Creatine Kinase 361 U/L (39-308) C-Reactive Protein 0.69 MG/DL (0.00-0.30) Albumin 2.9 GM/DL (3.4-5.0) Acetaminophen Level LESS THAN 2.0 MCG/ML (10.0-30.0) Urine Opiates Screen POS (NEG) Urine Cannabinoids Screen POS (NEG) PE at Discharge GENERAL: Well-nourished, well-developed patient in NAD. SKIN: Warm and dry. No rash. HEENT: Normocephalic. Atraumatic. Pupils equal and round. No scleral icterus. No injection or drainage. No nasal bleeding or discharge. Mucous membranes pink and moist. Supple. Trachea midline. CARDIOVASCULAR: Regular rate and rhythm. S1, S2 noted. No murmur appreciated. RESPIRATORY: No accessory muscle use. CTA. Breath sounds equal bilaterally. GASTROINTESTINAL: Abdomen soft, non-tender, nondistended. Normoactive bowel sounds x4. MUSCULOSKELETAL: No obvious deformities. Extremities without clubbing, cyanosis , or edema. NEUROLOGICAL: Awake and alert. No obvious cranial nerve deficits. Motor grossly within normal limits. Normal speech. PSYCHIATRIC: Appropriate mood and affect; insight and judgment normal. Hospital Course Mr. Stout is a 61-year-old male with a known history of COPD, anxiety, hepatitis C, chronic ETOH abuse and tobacco abuse who presented to the ED with complaints of headache and productive cough x 3 days with episodes of nausea and vomiting and associated diaphoresis and weakness. Chest x-ray showed left lower lobe infiltrate, patient was diagnosed to have aspiration pneumonia likely secondary to anaerobic bacteria. Patient was initially given Zosyn and vancomycin which was then switched to clindamycin. Patient was also started on bronchodilators and mucolytics. After about one day, patient showed improvement with 92% saturation on room air. Patient will be discharged on clindamycin to finish 1 week of treatment. Patient had mild thrombocytopenia which was suspected secondary to patient's hepatitis C and chronic alcohol use. He will get a recheck CBC in a few days and will follow-up with an outpatient doctor. Patient did not have any hepatic encephalopathy, ammonia was elevated but patient is asymptomatic. This was discussed with the patient. Pt Condition on Discharge: Good Discharge Disposition: Discharge Home Discharge Time: > 30 minutes Discharge Instructions DIET: Follow Instructions for: Heart Healthy Diet Activities you can perform: Regular-No Restrictions Follow up Referrals: PCP Follow-up - 1 Week New Orders: CBC NO DIFF - 2-3 Days New Medications: Clindamycin (Clindamycin) 300 Mg Cap 600 MG PO Q8H Infection #18 Ref 0 CAP Folic Acid (Folate) 1 Mg Tab 1 MG PO DAILY anemia #30 TAB Guaifenesin ER 12 HR (Mucinex ER 12 HR) 600 Mg Kelsey 600 MG PO BID cough #14 TAB Thiamine (Vitamin B-1) 100 Mg Tab 100 MG PO DAILY supplement #30 TAB Everardo Hughes MD March 02, 2017 10:38
== END 2017-03-02 10:42 | disposition home or self-care (01) ==
LOC: NEPE 23:00 → NEDA 03-01 01:29 → INTOOBSV 03-01 01:29 → NEDH 03-01 05:28 → HCIS 03-01 07:41
PROVIDERS: ADMIT Hospitalist; ATTEND Hospitalist
DX: J69.0 Pneumonitis due to inhalation of food and vomit (principal); J44.9 Chronic obstructive pulmonary disease, unspecified; R41.82 Altered mental status, unspecified; K72.90 Hepatic failure, unspecified without coma; D72.825 Bandemia; D75.89 Other specified diseases of blood and blood-forming organs; E87.2 Acidosis; F41.9 Anxiety disorder, unspecified; F10.10 Alcohol abuse, uncomplicated; F17.210 Nicotine dependence, cigarettes, uncomplicated; B19.20 Unspecified viral hepatitis C without hepatic coma; Z88.5 Allergy status to narcotic agent; Z88.8 Allergy status to other drugs, medicaments and biological substances; D72.810 Lymphocytopenia; D69.6 Thrombocytopenia, unspecified
CPT/HCPCS: 70450; 71010; 80048; 80053; 80307; 82140; 82550; 82552; 83605; 83690; 83735; 84484; 85007; 85027; 85610; 85730; 86140; 87040; 87804; 93005; 94640; 94664; 96374; 96375; 97161; 99291; G0378; J2060; J2270; J2405; J2543; J3370; J7030; J7050

== ENCOUNTER 2017-03-25 13:30 | Emergency (ER) | payer OTHER ==
[~2017-03-25] VITALS: Ht 188 cm; Wt 70.0 kg
[~2017-03-25 13:30] MED LIST: CLIN1CAP6 PO; FOLI1TAB4 PO; MUCI600T PO; VITA100T2 PO
[2017-03-25 13:58] VITALS: BP 141/81; PULSE 88; TEMP 98.2; O2SAT 97
--- NOTE | 2017-03-25 14:16 | PD ---
HPI Chief Complaint: Alcohol/Drug Intoxication Time Seen by Provider: 13:50 Travel History International Travel<30 days: No Contact w/Intl Traveler<30days: No Traveled to known affect area: No History of Present Illness HPI This patient admits to drinking heavily and started stumbling and fell and struck his head on a curb. He hit the right side of his head. He does complain of headache but no neck pain. He scraped his right shoulder and right hip as well. Symptom severity is moderate. Duration 1 hour. No alleviating factors. PFSH Past Medical History Cancer: No Cardiovascular Problems: No Diminished Hearing: No Endocrine: No Gastrointestinal Disorders: No Genitourinary: No Hepatitis: Yes (c) Immune Disorder: No Implanted Vascular Access Dvce: No Medical other: Yes (HEP C) Musculoskeletal: Yes Neurologic: No Psychiatric: No Reproductive: No Respiratory: Yes ("JUST HAD PNEUMONIA") PNEUMOCCOCAL Vaccine (Year): 1 Past Surgical History Other Surgery: No Social History Alcohol Use: Yes (daily, yesterday) Tobacco Use: Yes Substance Use: No Allergies-Medications (Allergen,Severity, Reaction): Coded Allergies: Codeine (Verified Allergy, Severe, Hives, 01/07/17) Tylenol (Verified Adverse Reaction, Intermediate, Nausea/Vomiting, 01/07/17 ) *MDRO Multi-Drug Resistant Organism (Verified Adverse Reaction, Unknown, ) 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 Reported Meds & Prescriptions Reported Meds & Active Scripts Active Tramadol (Tramadol HCl) 50 Mg Tab 50 Mg PO Q6H PRN Clindamycin (Clindamycin HCl) 300 Mg Cap 600 Mg PO Q8H Vitamin B-1 (Thiamine HCl) 100 Mg Tab 100 Mg PO DAILY Mucinex ER 12 HR (Guaifenesin) 600 Mg Kelsey 600 Mg PO BID Folate (Folic Acid) 1 Mg Tab 1 Mg PO DAILY Review of Systems General / Constitutional: No: Fever Eyes: No: Visual changes HENT: Positive: Headaches Cardiovascular: No: Chest Pain or Discomfort Respiratory: No: Shortness of Breath Gastrointestinal: No: Abdominal Pain Genitourinary: No: Dysuria Musculoskeletal: Positive: Pain (No) Skin: No Rash Neurologic: Positive: Headache, No: Weakness Psychiatric: Positive: Substance Abuse, No: Depression Endocrine: No: Polydipsia Hematologic/Lymphatic: No: Easy Bruising Physical Exam Narrative GENERAL: Disheveled, well-developed patient in no apparent distress. SKIN: Focused skin assessment reveals no rash and nodules. Skin is Warm and dry. HEAD: Has a laceration to the right adventist approximately 2.5 cm length. Normocephalic. EYES: Pupils equal and round. No scleral icterus. No injection or drainage. ENT: No nasal bleeding or discharge. Mucous membranes pink and moist. NECK: Trachea midline. No JVD. No midline tenderness CARDIOVASCULAR: Regular rate and rhythm. No murmur appreciated. RESPIRATORY: No accessory muscle use. Clear to auscultation. Breath sounds equal bilaterally. GASTROINTESTINAL: Abdomen soft, non-tender, nondistended. Hepatic and splenic margins not palpable. MUSCULOSKELETAL: No obvious deformities. No clubbing. No cyanosis. No edema. Abrasion to the right hip and right shoulder NEUROLOGICAL: Awake and alert. No obvious cranial nerve deficits. Motor grossly within normal limits. Slight slurring of speech. PSYCHIATRIC: Appropriate mood and affect; insight and judgment poor. Data Data Last Documented VS Vital Signs Date Time Temp Pulse Resp B/P Pulse Ox O2 Delivery O2 Flow Rate FiO2 03/25/17 16:33 66 03/25/17 13:58 98.2 141/[address] Brain W/O Iv Contrast(Rout) (03/25/17 ) Ct Cerv Spine W/O Contrast (03/25/17 ) Iv Access Insert/Monitor (03/25/17 13:55) Complete Blood Count With Diff (03/25/17 13:55) Basic Metabolic Panel (Bmp) (03/25/17 13:55) Prothrombin Time / Inr (Pt) (03/25/17 13:55) Act Partial Throm Time (Ptt) (03/25/17 13:55) Alcohol (Ethanol) (03/25/17 13:55) Shoulder, Complete (>2vws) (03/25/17 ) Pelvis, Ap Only (Routine) (03/25/17 ) Labs Laboratory Tests Test 03/25/17 14:00 White Blood Count 5.4 TH/MM3 Red Blood Count 4.30 MIL/MM3 Hemoglobin 15.1 GM/DL Hematocrit 43.3 % Mean Corpuscular Volume 100.7 FL Mean Corpuscular Hemoglobin 35.2 PG Mean Corpuscular Hemoglobin 34.9 % Concent Red Cell Distribution Width 13.4 % Platelet Count 116 TH/MM3 Mean Platelet Volume 9.5 FL Neutrophils (%) (Auto) 39.3 % Lymphocytes (%) (Auto) 47.6 % Monocytes (%) (Auto) 11.0 % Eosinophils (%) (Auto) 1.8 % Basophils (%) (Auto) 0.3 % Neutrophils # (Auto) 2.1 TH/MM3 Lymphocytes # (Auto) 2.6 TH/MM3 Monocytes # (Auto) 0.6 TH/MM3 Eosinophils # (Auto) 0.1 TH/MM3 Basophils # (Auto) 0.0 TH/MM3 CBC Comment DIFF FINAL Differential Comment Prothrombin Time 11.2 SEC Prothromb Time International 1.0 RATIO Ratio Activated Partial 28.6 SEC Thromboplast Time Sodium Level 141 MEQ/L Potassium Level 3.6 MEQ/L Chloride Level 105 MEQ/L Carbon Dioxide Level 25.6 MEQ/L Anion Gap 10 MEQ/L Blood Urea Nitrogen 4 MG/DL Creatinine 0.62 MG/DL Estimat Glomerular Filtration 131 ML/MIN Rate Random Glucose 78 MG/DL Calcium Level 8.1 MG/DL Ethyl Alcohol Level 129 MG/DL [facility] Medical Decision Making Medical Screen Exam Complete: Yes Emergency Medical Condition: Yes Medical Record Reviewed: Yes Differential Diagnosis Intracranial hemorrhage, skull fracture, concussion Narrative Course I have reviewed the patient's electronic medical record. IV placed CBC shows mild thrombocytopenia Metabolic profile is normal Alcohol level is 129 Coagulation studies are normal I reviewed his right shoulder x-rays and noted the radiologist's interpretation. There is questionable shoulder which is mild because it's only seen on one of the 4 views. He does have abrasion in the region. Recommending a sling. Recommend orthopedic follow-up and icing the area down. Reviewed his right pelvis x-ray which is normal Brain CT is negative Cervical spine CT shows arthritic change without fracture LACERATION LOCATION: Right adventist LENGTH: 2.5 cm NUMBER OF STITCHES/NATALIE: 3 REPAIR: The area of the laceration was prepped with Betadine and sterilely draped. We discussed anesthesia but he says he didn't need it. The wound was copiously irrigated and explored without evidence of foreign body, tendon injury or neurovascular injury. I closed the wound using 3 natalie in a single layer repair. A sterile dressing was applied. The patient was advised to keep the dressing clean and dry. Patient tolerated the procedure well. Tetanus reportedly up-to-date Stable for outpatient follow-up Diagnosis Primary Impression: Head injury due to trauma Qualified Code: S09.90XA - Head injury due to trauma, initial encounter Additional Impressions: Laceration of scalp Qualified Code: S01.01XA - Laceration of scalp, initial encounter Alcohol intoxication Qualified Code: F10.920 - Alcohol intoxication, uncomplicated Thrombocytopenia Additional Instructions: The patient was advised to follow up with their physician and return if they worsen. The patient was warned about potential sedation for the medications they will receive on prescription. Apply ice to right shoulder and wear sling Natalie out in 10 days Med/Other Pt SpecificInfo: Prescription(s) given Scripts Tramadol 50 Mg Tab50 Mg PO Q6H PRN (PAIN) #15 TAB Ref 0 Prov:Dakotah Belcher MD 03/25/17 Disposition: 01 DISCHARGE HOME Condition: Stable Dakotah Belcher MD Mar 25, 2017 14:16
[2017-03-25 14:19] LABS: AUTOMATED NEUTROPHIL # 2.1 TH/MM3 (1.8-7.7); BASOPHIL % 0.3 % (0.0-2.0); EOSINOPHIL # 0.1 TH/MM3 (0-0.4); EOSINOPHIL % 1.8 % (0.0-4.0); HEMATOCRIT 43.3 % (39.0-51.0); HEMO FLAGS DIFF FINAL; LYMPH % 47.6 % (9.0-44.0); LYMPHOCYTE # 2.6 TH/MM3 (1.0-4.8); MEAN CELL VOLUME 100.7 FL (80.0-100.0); MEAN CORPUSCULAR HEMOGLOBIN 35.2 PG (27.0-34.0); MEAN CORPUSCULAR HGB CONC 34.9 % (32.0-36.0); NEUT % 39.3 % (16.0-70.0); PLATELET COUNT 116 TH/MM3 (150-450); RED CELL DISTRIBUTION WIDTH 13.4 % (11.6-17.2); WHITE BLOOD COUNT 5.4 TH/MM3 (4.0-11.0)
[2017-03-25 14:32] LABS: APTT (PATIENT) 28.6 SEC (24.3-30.1); PROTHROMBIN TIME - PATIENT 11.2 SEC (9.8-11.6)
--- NOTE | 2017-03-25 14:42 | RADRPT ---
EXAM DATE/TIME: 03/25/2017 14:24 [facility] COMPARISON: No previous studies available for comparison. INDICATIONS : Pelvic pain after falling today. MEDICAL HISTORY : Hepatitis C. SURGICAL HISTORY : None. ENCOUNTER: Initial ACUITY: 1 day PAIN SCORE: 0/10 LOCATION: Pelvis. FINDINGS: Single AP view of the pelvis demonstrates no fracture or dislocation. Mineralization is within normal limits. There is no significant arthropathy. No soft tissue abnormality or radiopaque foreign body i s identified. CONCLUSION: No acute finding is identified. Blaze Hood MD on March 25, 2017 at 14:39 Board Certified Radiologist. This report was verified electronically.
--- NOTE | 2017-03-25 14:45 | RADRPT ---
EXAM DATE/TIME: 03/25/2017 14:26 [facility] COMPARISON: No previous studies available for comparison. INDICATIONS : Right shoulder pain after falling today. MEDICAL HISTORY : Hepatitis C. SURGICAL HISTORY : None. ENCOUNTER: Initial ACUITY: 1 day PAIN SCORE: 2/10 LOCATION: Right shoulder. FINDINGS: Views of the right shoulder demonstrate no fracture. Acromioclavicular joint appears intact on. The 4 images but distal clavicle appears elevated compared to the acromion on the scapular Y-view. There i s mild osteoarthritis of the glenohumeral joint. Subchondral cysts are present in the humeral head ad jacent to the greater tuberosity. No soft tissue abnormality is seen. The right chest abnormality is identified. CONCLUSION: 1. No fracture is identified. As described above, the acromioclavicular joint has a normal appearance on 3 of the 4 views but the distal clavicle appears elevated compared to the acromion on the scapula r Y. view. Suggest correlation for pain in the a.c. joint region. 2. Posterior arthritis the glenohumeral joint and subchondral cystic change in the humeral head also be related to chronic rotator cuff tendinosis. Blaze Hood MD on March 25, 2017 at 14:40 Board Certified Radiologist. This report was verified electronically.
[2017-03-25 15:04] LABS: BICARBONATE 25.6 MEQ/L (21.0-32.0); POTASSIUM 3.6 MEQ/L (3.5-5.1)
--- NOTE | 2017-03-25 16:27 | RADRPT ---
EXAM DATE/TIME: 03/25/2017 15:20 [facility] COMPARISON: CT BRAIN W/O CONTRAST, February 28, 2017, 23:34. INDICATIONS : Fell hit head laceration right side. RADIATION DOSE: 45.21 CTDIvol (mGy) MEDICAL HISTORY : Hepatitis C. TB SURGICAL HISTORY : None. ENCOUNTER: Initial ACUITY: 1 day PAIN SCALE: 7/10 LOCATION: cranial TECHNIQUE: Multiple contiguous axial images were obtained of the head. Using automated exposure control and adj ustment of the mA and/or kV according to patient size, radiation dose was kept as low as reasonably a chievable to obtain optimal diagnostic quality images. FINDINGS: CEREBRUM: The ventricles are normal for age. No evidence of midline shift, mass lesion, hemorrhage or acute in farction. No extra-axial fluid collections are seen. POSTERIOR FOSSA: The cerebellum and brainstem are intact. The 4th ventricle is midline. The cerebellopontine angle i s unremarkable. EXTRACRANIAL: Left maxillary and frontal ethmoidal sinus disease again seen. SKULL: The calvaria is intact. No evidence of skull fracture. CONCLUSION: No acute intracranial findings. Patricio Pulido MD on March 25, 2017 at 16:24 Board Certified Radiologist. This report was verified electronically.
--- NOTE | 2017-03-25 16:31 | RADRPT ---
EXAM DATE/TIME: 03/25/2017 15:20 [facility] COMPARISON: CT CERVICAL SPINE W/O CONTRAST, October 20, 2016, 21:00. INDICATIONS : Fell hit head. RADIATION DOSE: 38.65 CTDIvol (mGy) MEDICAL HISTORY : Hepatitis C. SURGICAL HISTORY : None. ENCOUNTER: Initial ACUITY: 1 day PAIN SCALE: 7/10 LOCATION: neck TECHNIQUE: Volumetric scanning of the cervical spine was performed. Multiplanar reconstructions in the sagittal, coronal and oblique axial planes were performed. Using automated exposure control and adjustment o f the mA and/or kV according to patient size, radiation dose was kept as low as reasonably achievable to obtain optimal diagnostic quality images. FINDINGS: VERTEBRAE: Normal vertebral body height. ALIGNMENT: No evidence of subluxation. Multilevel degenerative findings unchanged from 10/20/2016. CONCLUSION: No evidence of fracture. Chronic degenerative findings unchanged. Patricio Pulido MD on March 25, 2017 at 16:25 Board Certified Radiologist. This report was verified electronically.
[2017-03-25 16:33] VITALS: PULSE 66
[2017-03-25] MEDS ORDERED: TRAM50TA PO (17:00)
== END 2017-03-25 17:46 | disposition home or self-care (01) ==
LOC: NEPE 13:30
DX: S01.01XA Laceration without foreign body of scalp, initial encounter (principal); S09.90XA Unspecified injury of head, initial encounter; S40.211A Abrasion of right shoulder, initial encounter; S70.211A Abrasion, right hip, initial encounter; F10.920 Alcohol use, unspecified with intoxication, uncomplicated; D69.6 Thrombocytopenia, unspecified; Z86.19 Personal history of other infectious and parasitic diseases; Z72.0 Tobacco use; Z87.39 Personal history of other diseases of the musculoskeletal system and connective tissue; W01.198A Fall on same level from slipping, tripping and stumbling with subsequent striking against other object, initial encounter
CPT/HCPCS: 12001; 70450; 72125; 72170; 73030; 80048; 80307; 85025; 85610; 85730

== ENCOUNTER 2017-04-04 13:02 | Emergency (ER) | payer OTHER ==
[~2017-04-04 13:02] MED LIST changes: +TRAM50TA PO
[2017-04-04 13:03] VITALS: BP 143/75; PULSE 77; RESP 15; TEMP 98.2; O2SAT 98
--- NOTE | 2017-04-04 13:43 | PD ---
HPI Chief Complaint: Wound/Suture/Staple Re-Check Time Seen by Provider: 13:41 Travel History International Travel<30 days: No Contact w/Intl Traveler<30days: No Traveled to known affect area: No History of Present Illness HPI 61-year-old male presents to the emergency department requesting emigdio removed from right frontal scalp. They have been in place since March 25. He denies fever, vomiting. Denies drainage from the wound site. Has no other medical complaints. No other modifying factors or associated signs and symptoms. PFSH Past Medical History Cancer: No Cardiovascular Problems: No Diminished Hearing: No Endocrine: No Gastrointestinal Disorders: No Genitourinary: No Hepatitis: Yes (c) Immune Disorder: No Implanted Vascular Access Dvce: No Musculoskeletal: Yes Neurologic: No Psychiatric: No Reproductive: No Respiratory: Yes ("JUST HAD PNEUMONIA") PNEUMOCCOCAL Vaccine (Year): 1 Past Surgical History Other Surgery: No Social History Alcohol Use: Yes (daily, yesterday) Tobacco Use: Yes Substance Use: No Allergies-Medications (Allergen,Severity, Reaction): Coded Allergies: Codeine (Verified Allergy, Severe, Hives, 01/07/17) Tylenol (Verified Adverse Reaction, Intermediate, Nausea/Vomiting, 01/07/17 ) *MDRO Multi-Drug Resistant Organism (Verified Adverse Reaction, Unknown, ) 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 Right frontal scalp with wound edges well approximated emigdio intact; without erythema, edema, drainage. No signs of infection. HEAD: Atraumatic. Normocephalic. EYES: Pupils equal and round. No scleral icterus. No injection or drainage. ENT: Mucosa pink and moist. Airway patent. NECK: Trachea midline. CARDIOVASCULAR: Regular rate. RESPIRATORY: No accessory muscle use. GASTROINTESTINAL: Flat. MUSCULOSKELETAL: No obvious deformities. No clubbing. No cyanosis. No edema. NEUROLOGICAL: Awake and alert. Oriented 3. No obvious cranial nerve deficits. Motor grossly within normal limits. Normal speech. PSYCHIATRIC: Appropriate mood and affect; insight and judgment normal. Data Data Last Documented VS Vital Signs Date Time Temp Pulse Resp B/P Pulse Ox O2 Delivery O2 Flow Rate FiO2 04/04/17 13:03 98.2 77 15 143/75 98 MDM Medical Decision Making Medical Screen Exam Complete: Yes Emergency Medical Condition: Yes Medical Record Reviewed: Yes Differential Diagnosis Staple removal, stitch removal, medical clearance, wound recheck Narrative Course 61-year-old male presents for staple removal. Wound approximated emigdio intact. No signs of infection. Patient is afebrile and nontoxic-appearing. Denies fever, vomiting. Patient verbalizes understanding and agreement with treatment plan. Patient is medically cleared and stable for discharge. Discussed reasons to return to the emergency department. Instructed patient to follow up with primary care provider. Patient agrees with treatment plan. The patients vital signs are stable and the patient is stable for outpatient follow- up and treatment. Patient discharged home, stable and in no acute distress. Diagnosis Primary Impression: Encounter for staple removal Referrals: Primary Care Physician Patient Instructions: General Instructions Additional Instructions: Follow-up with primary care provider Return to the emergency department with worsening of symptoms Disposition: 01 DISCHARGE HOME Condition: Stable Elaine Chavis Apr 04, 2017 13:43
== END 2017-04-04 14:49 | disposition home or self-care (01) ==
LOC: NEPD 13:02
DX: Z48.02 Encounter for removal of sutures (principal)
CPT/HCPCS: 99281

== ENCOUNTER 2017-10-26 11:05 | Inpatient (IN) | payer OTHER ==
[2017-10-26] VITALS (8 sets, daily range): BP systolic 121–150; BP diastolic 65–79; PULSE 74–82; RESP 14–22; TEMP 97.8–98.7; O2SAT 90–96
[~2017-10-26] VITALS: Ht 188 cm; Wt 70.1 kg
[~2017-10-26 11:05] MED LIST changes: -CLIN1CAP6 PO; +CLIN300C5 PO
--- NOTE | 2017-10-26 11:38 | PD ---
HPI Chief Complaint: Cold / Flu Symptoms Time Seen by Provider: 11:23 Travel History International Travel<30 days: No Contact w/Intl Traveler<30days: No Traveled to known affect area: No History of Present Illness HPI 61-year-old male presents emergency Department with several day history of increasing cough, shortness of breath, generalized muscle aches and pains, and weakness. Patient is a long-term smoker. Productive cough of greenish yellow sputum. He has had decreased sleep secondary to cough. He had post tussive emesis this morning 1. Patient has had chills but has been taking ibuprofen and cough medicine without improvement. Patient denies abdominal pain or chest pain specifically. Patient has history of MRSA, as allergic to acetaminophen and codeine. PFSH Past Medical History Cancer: No Cardiovascular Problems: No Diminished Hearing: No Endocrine: No Gastrointestinal Disorders: No Genitourinary: No Hepatitis: Yes (c) Immune Disorder: No Implanted Vascular Access Dvce: No Musculoskeletal: Yes Neurologic: No Psychiatric: No Reproductive: No Respiratory: Yes Immunizations Current: No Pneumonia: Yes PNEUMOCCOCAL Vaccine (Year): 1 Past Surgical History Surgical History: No Previous Surgery Other Surgery: No Social History Alcohol Use: Yes (socially ) Tobacco Use: Yes (5 cigs a day ) Substance Use: No Allergies-Medications (Allergen,Severity, Reaction): Coded Allergies: codeine (Unverified Allergy, Severe, Hives, 10/26/17) acetaminophen (Unverified Adverse Reaction, Intermediate, Nausea/Vomiting , 10/26/17) *MDRO Multi-Drug Resistant Organism (Verified Adverse Reaction, Unknown, ) 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 Reported Meds & Prescriptions Reported Meds & Active Scripts Active Review of Systems Except as stated in HPI: all other systems reviewed are Neg General / Constitutional: Positive: Fever, Chills Eyes: No: Visual changes HENT: Positive: Headaches, Rhinitis, Rhinorrhea, Congestion (subjective), No: Vertigo, Lightheadedness, Sore Throat, Nosebleed, Neck Stiffness, Neck Pain, Dental Difficulties, Earache Cardiovascular: No: Chest Pain or Discomfort Respiratory: Positive: Cough, Shortness of Breath, Wheezing, Orthopnea, Night Sweats, No: Sneezing, Hemoptysis, Stridor, Pleuritic Pain Gastrointestinal: Positive: Vomiting (posttussive emesis), Loss of Appetite, No : Nausea, Abdominal Pain Genitourinary: No: Dysuria Musculoskeletal: Positive: Myalgias, No: Pain Skin: No Rash Neurologic: No: Weakness Psychiatric: No: Depression Endocrine: No: Polydipsia Hematologic/Lymphatic: No: Easy Bruising Physical Exam Narrative GENERAL: The patient appears ill SKIN: Warm and dry. Normal color. Somewhat decreased turgor with mild tenting present. HEAD: Atraumatic. Normocephalic. EYES: Pupils equal and round. No scleral icterus. No injection or drainage. ENT: No nasal bleeding or discharge. Mucous membranes pink and moist. TMs are clear bilaterally. Posterior pharynx is somewhat erythematous without exudate or significant lymphadenopathy. Uvula is midline. Airway is patent. NECK: Trachea midline. Supple without significant lymphadenopathy. CARDIOVASCULAR: Tachycardic rate and normal rhythm. RESPIRATORY: Mild accessory muscle use. Moderate diffuse wheezing and rales to auscultation. Breath sounds equal bilaterally. GASTROINTESTINAL: Abdomen soft, non-tender, nondistended. Hepatic and splenic margins not palpable. MUSCULOSKELETAL: Extremities without clubbing, cyanosis, or edema. No obvious deformities. NEUROLOGICAL: Awake and alert. No obvious cranial nerve deficits. Motor grossly within normal limits. Five out of 5 muscle strength in the arms and legs. Normal speech. PSYCHIATRIC: Appropriate mood and affect; insight and judgment normal. Data Data Last Documented VS Vital Signs Date Time Temp Pulse Resp B/P (MAP) Pulse Ox O2 Delivery O2 Flow Rate FiO2 10/26/17 13:22 92 Nasal Cannula 4.00 10/26/17 11:33 10/26/17 11:18 22 10/26/17 11:09 98.7 82 Orders Orders Complete Blood Count With Diff (10/26/17 11:32) Comprehensive Metabolic Panel (10/26/17 11:32) Act Partial Throm Time (Ptt) (10/26/17 11:32) Prothrombin Time / Inr (Pt) (10/26/17 11:32) Influenzae A/B Antigen (10/26/17 11:32) Iv Access Insert/Monitor (10/26/17 11:32) Ecg Monitoring (10/26/17 11:32) Oximetry (10/26/17 11:32) Oxygen Administration (10/26/17 11:32) Chest, Pa & Lat (10/26/17 11:32) Sodium Chloride 0.9% Flush (Ns Flush) (10/26/17 11:45) Methylprednisolone So Succ Inj (Solumedr (10/26/17 11:45) Albuterol-Ipratropium Neb (Duoneb Neb) (10/26/17 11:45) Sodium Chlor 0.9% 1000 Ml Inj (Ns 1000 M (10/26/17 11:45) Urinalysis - C+S If Indicated (10/26/17 12:17) Lactic Acid (10/26/17 13:23) Blood Culture (10/26/17 13:23) Ceftriaxone Inj (Rocephin Inj) (10/26/17 13:30) Azithromycin (Zithromax) (10/26/17 13:30) Labs Laboratory Tests Test 10/26/17 11:45 10/26/17 11:47 White Blood Count 11.7 TH/MM3 Red Blood Count 4.89 MIL/MM3 Hemoglobin 16.7 GM/DL Hematocrit 47.3 % Mean Corpuscular Volume 96.7 FL Mean Corpuscular Hemoglobin 34.2 PG Mean Corpuscular Hemoglobin Concent 35.3 % Red Cell Distribution Width 13.0 % Platelet Count 164 TH/MM3 Mean Platelet Volume 10.0 FL Neutrophils (%) (Auto) 79.8 % Lymphocytes (%) (Auto) 12.3 % Monocytes (%) (Auto) 7.3 % Eosinophils (%) (Auto) 0.4 % Basophils (%) (Auto) 0.2 % Neutrophils # (Auto) 9.4 TH/MM3 Lymphocytes # (Auto) 1.4 TH/MM3 Monocytes # (Auto) 0.9 TH/MM3 Eosinophils # (Auto) 0.0 TH/MM3 Basophils # (Auto) 0.0 TH/MM3 CBC Comment DIFF FINAL Differential Comment Prothrombin Time 10.9 SEC Prothromb Time International Ratio 1.1 RATIO Activated Partial Thromboplast Time 25.4 SEC Blood Urea Nitrogen 10 MG/DL Creatinine 0.73 MG/DL Random Glucose 100 MG/DL Total Protein 7.1 GM/DL Albumin 2.8 GM/DL Calcium Level 8.9 MG/DL Alkaline Phosphatase 70 U/L Aspartate Amino Transf (AST/SGOT) 27 U/L Alanine Aminotransferase (ALT/SGPT) 22 U/L Total Bilirubin 0.7 MG/DL Sodium Level 135 MEQ/L Potassium Level 4.2 MEQ/L Chloride Level 99 MEQ/L Carbon Dioxide Level 26.8 MEQ/L Anion Gap 9 MEQ/L Estimat Glomerular Filtration Rate 109 ML/MIN Urine Color YELLOW Urine Turbidity HAZY Urine pH 8.5 Urine Specific [place] 1.023 Urine Protein 30 mg/dL Urine Glucose (UA) NEG mg/dL Urine Ketones TRACE mg/dL Urine Occult Blood NEG Urine Nitrite NEG Urine Bilirubin NEG Urine Urobilinogen GREATER THAN 12.0 MG/DL Urine Leukocyte Esterase NEG Urine WBC 1 /hpf Urine Mucus MANY /lpf Microscopic Urinalysis Comment CULT NOT INDICATED MDM Medical Decision Making Medical Screen Exam Complete: Yes Emergency Medical Condition: Yes Differential Diagnosis Influenza. Bronchitis. Pneumonia. COPD with acute exacerbation. Narrative Course Labs ordered including CBC, CMP, rapid influenza. Chest x-ray PA and lateral was ordered. IV access is obtained patient is given 125 mg Solu-Medrol, and DuoNeb 3. Rapid influenza is negative. Chest x-ray shows bilateral pneumonia. Patient is noted to need 4 L of oxygen via nasal cannula to maintain O2 sats above 92%. CBC is unremarkable except for slight leukocytosis of 11.3. Lactic acid, blood cultures, are added, and the patient is given azithromycin 500 mg by mouth as well as Rocephin 1000 mg IV. Patient is discussed with Dr. Guillory, the hospitalist who agrees to admit the patient. Diagnosis Primary Impression: Bilateral pneumonia Qualified Codes: J18.9 - Pneumonia, unspecified organism Additional Impression: Hypoxia Admitting Information Admitting Physician Requests: Admit Condition: Stable Jose Aleman Oct 26, 2017 11:38
[2017-10-26] MEDS: RESP: ALBUTEROL 2.5 MG/IPRATROPIUM 0.5 MG NEB (SCH) INH (11:39)
[2017-10-26] MEDS ORDERED: SODIUM CHLOR 0.9% 1000 ML INJ 1,000 ML IV ONE (11:45)
[2017-10-26] MEDS ORDERED: SODIUM CHLORIDE 0.9% FLUSH 10 ML FLUSH IVF PRN (11:45)
[2017-10-26] MEDS ORDERED: methylPREDNISolone SOD SUCC 125 MG/2 ML VIAL IV PUSH ONE (11:45)
[2017-10-26 12:12] LABS: AUTOMATED NEUTROPHIL # 9.4 TH/MM3 (1.8-7.7); BASOPHIL % 0.2 % (0.0-2.0); EOSINOPHIL % 0.4 % (0.0-4.0); HEMATOCRIT 47.3 % (39.0-51.0); HEMOGLOBIN 16.7 GM/DL (13.0-17.0); LYMPH % 12.3 % (9.0-44.0); LYMPHOCYTE # 1.4 TH/MM3 (1.0-4.8); MEAN CELL VOLUME 96.7 FL (80.0-100.0); MEAN CORPUSCULAR HEMOGLOBIN 34.2 PG (27.0-34.0); MEAN CORPUSCULAR HGB CONC 35.3 % (32.0-36.0); MONO % 7.3 % (0.0-8.0); MONOCYTE # 0.9 TH/MM3 (0-0.9); NEUT % 79.8 % (16.0-70.0); PLATELET COUNT 164 TH/MM3 (150-450); RED BLOOD COUNT 4.89 MIL/MM3 (4.50-5.90); WHITE BLOOD COUNT 11.7 TH/MM3 (4.0-11.0)
[2017-10-26 12:14] LABS: INTERNATIONAL NORMALIZED RATIO 1.1 RATIO; PROTHROMBIN TIME - PATIENT 10.9 SEC (9.8-11.6)
[2017-10-26 12:22] LABS: ALT (GPT) 22 U/L (12-78)
[2017-10-26 12:24] LABS: ALBUMIN 2.8 GM/DL (3.4-5.0); ALKALINE PHOSPHATASE 70 U/L (45-117); AST (GOT) 27 U/L (15-37); BICARBONATE 26.8 MEQ/L (21.0-32.0); BLOOD UREA NITROGEN 10 MG/DL (7-18); CALCIUM 8.9 MG/DL (8.5-10.1); CHLORIDE 99 MEQ/L (98-107); CREATININE 0.73 MG/DL (0.60-1.30); GLOMERULAR FILTRATION RATE 109 ML/MIN (>89); GLUCOSE,RANDOM 100 MG/DL (74-106); SODIUM (NA) 135 MEQ/L (136-145); TOTAL BILIRUBIN ADULT 0.7 MG/DL (0.2-1.0); TOTAL PROTEIN 7.1 GM/DL (6.4-8.2)
[2017-10-26 12:30] LABS: BLOOD, URINE NEG (NEG); GLUCOSE,URINE NEG (NEG); KETONE, URINE TRACE mg/dL (NEG); MUCUS URINE MANY /lpf (OCC); NITRITE,URINE NEG (NEG); PH, URINE 8.5 (5.0-8.5); URINE COLOR YELLOW (YELLW/STRAW); URINE LEUKOCYTE ESTERASE NEG (NEG)
[2017-10-26 12:31] LABS: BILIRUBIN, URINE NEG (NEG)
--- NOTE | 2017-10-26 12:53 | RADRPT ---
EXAM DATE/TIME: 10/26/2017 12:31 [facility] COMPARISON: No previous studies available for comparison. INDICATIONS : Cough. Short of breath. MEDICAL HISTORY : Hepatitis C. SURGICAL HISTORY : None. ENCOUNTER: Initial ACUITY: 3 days PAIN SCORE: 0/10 LOCATION: Bilateral chest FINDINGS: Her patchy airspace disease bilaterally especially in the lung bases and perihilar regions most gamaliel cteristic of a bronchopneumonia. Peribronchial thickening also present. No effusion. Heart size luis l. CONCLUSION: 1. Patchy bilateral airspace disease most characteristic of bronchopneumonia. Remote right 11th rib f racture. Benny Doll MD on October 26, 2017 at 12:50 Board Certified Radiologist. This report was verified electronically.
[2017-10-26] MEDS ORDERED: AZITHROMYCIN 250 MG TAB PO ONE (13:30)
[2017-10-26] MEDS ORDERED: cefTRIAXone INJ 1,000 MG in SODIUM CHLORIDE 0.9% INJ 100 ML IV ONE (13:30)
[2017-10-26] MEDS ORDERED: BISACODYL 10 MG SUPP RECTAL PRN (13:45)
[2017-10-26] MEDS ORDERED: MORPHINE SULFATE 2 MG/ML INJ IV PUSH PRN ×2 (13:45)
[2017-10-26] MEDS ORDERED: METOCLOPRAMIDE HCL 10 MG/2 ML VIAL IV PUSH PRN (13:45)
[2017-10-26] MEDS ORDERED: RESP: ALBUTEROL 2.5 MG/IPRATROPIUM 0.5 MG NEB (PRN) INH (13:45)
[2017-10-26] MEDS ORDERED: SENNOSIDES 8.6 MG TAB PO PRN (13:45)
[2017-10-26] MEDS ORDERED: IBUPROFEN 400 MG TAB PO PRN (13:45)
[2017-10-26] MEDS ORDERED: LACTULOSE SYRUP 20 GM/30 ML CUP PO PRN (13:45)
[2017-10-26] MEDS ORDERED: MAGNESIUM HYDROXIDE SUSP 30 ML CUP PO PRN (13:45)
[2017-10-26] MEDS ORDERED: ONDANSETRON HCL 4 MG/2 ML VIAL IVP PRN (13:45)
[2017-10-26] MEDS ORDERED: cloNIDine HCL 0.1 MG TAB PO PRN (13:45)
[2017-10-26] MEDS ORDERED: ZOLPIDEM TARTRATE 5 MG TAB PO PRN (13:45)
[2017-10-26] MEDS ORDERED: methylPREDNISolone SOD SUCC 125 MG/2 ML VIAL IV PUSH SCH ×2 (13:45→21:00)
[2017-10-26] MEDS ORDERED: NALOXONE HCL 0.4 MG/ML AMP IV PUSH PRN (13:45)
[2017-10-26] MEDS ORDERED: SODIUM CHLORIDE 0.9% FLUSH 10 ML FLUSH IV FLUSH PRN ×2 (13:45)
[2017-10-26] MEDS: SODIUM CHLOR 0.9% 1000 ML INJ 1,000 ML IV SCH ×2 (14:51→20:04)
[2017-10-26] MEDS: guaiFENesin E.R. 600 MG TAB PO SCH ×2 (14:51→20:07)
[2017-10-26] MEDS: ENOXAPARIN SODIUM 40 MG/0.4 ML SYRINGE SQ SCH (14:54)
[2017-10-26] MEDS ORDERED: MULTIVITAMIN TAB PO ONE (15:00)
[2017-10-26] MEDS ORDERED: NICOTINE 14 MG/24 HR PATCH T-DERMAL ONE (15:00)
[2017-10-26] MEDS ORDERED: THIAMINE HCL 100 MG TAB PO ONE (15:00)
[2017-10-26] MEDS ORDERED: FOLIC ACID 1 MG TAB PO ONE (15:00)
[2017-10-26 15:03] LABS: TROPONIN I LESS THAN 0.02 NG/ML (0.02-0.05)
--- NOTE | 2017-10-26 15:06 | HHI.HP ---
HPI Service [facility] Hospitalists Primary Care Physician No Primary Care Physician Admission Diagnosis PNEUMONIA/Hypoxia Diagnoses: (1) Anxiety Diagnosis: Secondary (2) Tobacco abuse Diagnosis: Secondary (3) Alcohol abuse Diagnosis: Secondary (4) Bilateral pneumonia Diagnosis: Principal (5) Hypoxia Diagnosis: Principal Chief Complaint: Shortness of breath Travel History International Travel<30 Days: No Contact w/Intl Traveler <30 Da: No Traveled to Known Affected Are: No History of Present Illness Patient is a 61-year-old male who presents to the emergency department here at [facility] with several day history of increasing cough, shortness of breath, and generalized muscle aches and pains as well as weakness. Patient has been smoking for many years. Has productive cough with greenish yellowish sputum. Has had decreased sleep secondary to this cough and congestion. He has had some emesis this morning after coughing extensively. Patient also has been having chills and HAS been taking ibuprofen and cough medications without improvement. Denies any abdominal pain or chest pain. Has history of MRSA She will be admitted for bilateral pneumonia and started on antibiotics with Rocephin and Zithromax continue on DuoNeb some Mucinex and incentive spirometry Review of Systems Constitutional: COMPLAINS OF: Fatigue, Fever, Chills, DENIES: Diaphoretic episodes, Weight gain, Weight loss, Dizziness, Change in appetite, Night Sweats Endocrine: DENIES: Heat/cold intolerance, Polydipsia, Polyuria, Polyphagia Eyes: DENIES: Blurred vision, Diplopia, Eye inflammation, Eye pain, Vision loss , Photosensitivity, Double Vision Ears, nose, mouth, throat: DENIES: Tinnitus, Hearing loss, Vertigo, Nasal discharge, Oral lesions, Throat pain, Hoarseness, Ear Pain, Running Nose, Epistaxis, Sinus Pain, Toothache, Odynophagia Respiratory: COMPLAINS OF: Cough, Wheezing, Sputum production, Shortness of breath Cardiovascular: COMPLAINS OF: Dyspnea on Exertion, DENIES: Chest pain, Palpitations, Syncope, PND, Lower Extremity Edema, Orthopnea, Claudication Gastrointestinal: DENIES: Abdominal pain, Black stools, Bloody stools, Constipation, Diarrhea, Nausea, Vomiting, Difficulty Swallowing, Anorexia Genitourinary: DENIES: Sexual dysfunction, Urinary frequency, Urinary incontinence, Hematuria, Dysuria, Nocturia, Penile Discharge, Testicular Swelling Musculoskeletal: DENIES: Joint pain, Muscle aches, Stiffness, Joint Swelling, Back pain Integumentary: DENIES: Abnormal pigmentation, Nail changes, Pruritus, Rash Hematologic/lymphatic: DENIES: Bruising, Lymphadenopathy Immunologic/allergic: DENIES: Eczema, Urticaria Neurologic: COMPLAINS OF: Abnormal gait, DENIES: Headache, Localized weakness, Paresthesias, Speech Problems, Tremor, Poor Balance Psychiatric: COMPLAINS OF: Anxiety, DENIES: Confusion, Mood changes, Depression , Hallucinations, Agitation, Suicidal Ideation, Homicidal Ideation, Delusions Except as stated in HPI: all other systems reviewed are Neg Past Family Social History Past Medical History Hepatitis C Tobacco abuse Anxiety Psychiatric disorder History of alcohol abuse Chronic leukopenia COPD Past Surgical History Denies Reported Medications Klonopin 0.5 mg by mouth twice a day Allergies: Coded Allergies: codeine (Unverified Allergy, Severe, Hives, 10/26/17) acetaminophen (Unverified Adverse Reaction, Intermediate, Nausea/Vomiting , 10/26/17) *MDRO Multi-Drug Resistant Organism (Verified Adverse Reaction, Unknown, ) 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 Active Ordered Medications Current Medications Sodium Chloride (NS Flush) 2 ml UNSCH PRN IVF FLUSH AFTER USING IV ACCESS; Start 10/26/17 at 11:45; Stop 10/26/17 at 14:39; Status DC Methylprednisolone Sodium Succinate (SoluMEDROL INJ) 125 mg ONCE ONCE IV PUSH Last administered on 10/26/17at 12:04; Start 10/26/17 at 11:45; Stop 10/26/17 at 11: 46; Status DC Albuterol/ Ipratropium (Duoneb Neb) 1 ampule Q15M INH Last administered on at 11:39; Start 10/26/17 at 11:45; Stop 10/26/17 at 12:16; Status DC Sodium Chloride 1,000 ml @ 999 mls/hr BOLUS ONCE IV Last administered on at 12:04; Start 10/26/17 at 11:45; Stop 10/26/17 at 12:45; Status DC Ceftriaxone Sodium 1000 mg/ Sodium Chloride 100 ml @ 200 mls/hr ONCE ONCE IV Last administered on 10/26/17at 13:40; Start 10/26/17 at 13:30; Stop 10/26/17 at 13: 59; Status DC Azithromycin (Zithromax) 500 mg ONCE ONCE PO Last administered on 10/26/17at 13: 40; Start 10/26/17 at 13:30; Stop 10/26/17 at 13:31; Status DC Clonidine (Catapres) 0.1 mg Q4H PRN PO SBP>160, DBP>90; Start 10/26/17 at 13:45 Sodium Chloride 1,000 ml @ 200 mls/hr Q5H IV Last administered on 10/26/17at 14: 51; Start 10/26/17 at 13:45 Sodium Chloride (NS Flush) 2 ml UNSCH PRN IV FLUSH FLUSH AFTER USING IV ACCESS ; Start 10/26/17 at 13:45; Stop 10/26/17 at 14:39; Status DC Sodium Chloride (NS Flush) 2 ml BID IV FLUSH ; Start 10/26/17 at 21:00; Stop 10/26 at 21:00; Status DC Ondansetron HCl (Zofran Inj) 4 mg Q6H PRN IVP NAUSEA OR VOMITING; Start at 13:45 Metoclopramide HCl (Reglan Inj) 5 mg Q6H PRN IV PUSH NAUSEA OR VOMITING; Start 10/26/17 at 13:45 Zolpidem Tartrate (Ambien) 5 mg HS PRN PO INSOMNIA; Start 10/26/17 at 13:45 Enoxaparin Sodium (Lovenox Inj) 40 mg Q24H SQ ; Start 10/26/17 at 14:00 Ibuprofen (Motrin) 400 mg Q6H PRN PO PAIN SCALE 1 TO 2 OR FEVER; Start 10/26/17 at 13:45 Oxycodone HCl (Roxicodone) 10 mg Q4H PRN PO PAIN SCALE 6 TO 10; Start 10/26/17 at 13:45 Morphine Sulfate (Morphine Inj) 2 mg Q3H PRN IV PUSH Pain 3-5; if unable to take PO; Start 10/26/17 at 13:45 Morphine Sulfate (Morphine Inj) 4 mg Q3H PRN IV PUSH Pain 6-10;if unable to take PO; Start 10/26/17 at 13:45 Oxycodone HCl (Roxicodone) 5 mg Q4H PRN PO PAIN SCALE 3 TO 5; Start 10/26/17 at 13:45 Naloxone HCl (Narcan Inj) 0.4 mg UNSCH PRN IV PUSH SEE LABEL COMMENTS; Start at 13:45 Senna/Docusate Sodium (Lurdes-Colace) 1 tab BID PO ; Start 10/26/17 at 21:00 Magnesium Hydroxide (Milk Of Magnesia Liq) 30 ml Q12H PRN PO Mild constipation ; Start 10/26/17 at 13:45 Sennosides (Senokot) 17.2 mg Q12H PRN PO Moderate constipation; Start 10/26/17 at 13:45 Bisacodyl (Dulcolax Supp) 10 mg DAILY PRN RECTAL SEVERE CONSITIPATION; Start at 13:45 Lactulose (Lactulose Liq) 30 ml DAILY PRN PO SEVERE CONSITIPATION; Start at 13:45 Sodium Chloride (NS Flush) 2 ml UNSCH PRN IV FLUSH FLUSH AFTER USING IV ACCESS ; Start 10/26/17 at 13:45 Sodium Chloride (NS Flush) 2 ml BID IV FLUSH ; Start 10/26/17 at 21:00 Ceftriaxone Sodium 1000 mg/ Sodium Chloride 100 ml @ 200 mls/hr Q24H IV ; Start 10/27/17 at 12:00 Azithromycin 500 mg/Sodium Chloride 250 ml @ 250 mls/hr Q24H IV ; Start at 12:00 Albuterol/ Ipratropium (Duoneb Neb) 1 ampule Q6HR NEB INH ; Start 10/26/17 at 16 :00 Albuterol/ Ipratropium (Duoneb Neb) 1 ampule Q4HR NEB PRN INH SHORTNESS OF BREATH; Start 10/26/17 at 13:45 Methylprednisolone Sodium Succinate (SoluMEDROL INJ) 60 mg Q12HR IV PUSH ; Start 10/26/17 at 13:45; Stop 10/26/17 at 14:40; Status DC Guaifenesin (Mucinex Er) 600 mg BID PO Last administered on 10/26/17at 14:51; Start 10/26/17 at 13:45 Methylprednisolone Sodium Succinate (SoluMEDROL INJ) 60 mg Q12HR IV PUSH ; Start 10/26/17 at 21:00 Family History Tobacco abuse Probably alcohol Possible hypertension Father had diabetes Mother alcoholic Social History Tobacco pack a day or less alcohol abuse beers most days Possible drug abuse in past with positive hepatitis C Physical Exam Vital Signs Vital Signs Date Time Temp Pulse Resp B/P (MAP) Pulse Ox O2 Delivery O2 Flow Rate FiO2 10/26/17 13:55 81 20 121/65 (83) 94 Nasal Cannula 4.00 10/26/17 13:22 92 Nasal Cannula 4.00 10/26/17 13:20 87 Room Air 10/26/17 11:33 93 Room Air 10/26/17 11:18 22 10/26/17 11:09 98.7 82 14 150/79 (102) 90 Physical Exam GENERAL: This is a well-nourished, well-developed patient, in no apparent distress. Smells of tobacco SKIN: No rashes, ecchymoses or lesions. Cool and dry. HEAD: Atraumatic. Normocephalic. No temporal or scalp tenderness. EYES: Pupils equal round and reactive. Extraocular motions intact. No scleral icterus. No injection or drainage. ENT: Nose without bleeding, purulent drainage or septal hematoma. Throat without erythema, tonsillar hypertrophy or exudate. Uvula midline. Airway patent. NECK: Trachea midline. No JVD or lymphadenopathy. Supple, nontender, no meningeal signs. CARDIOVASCULAR: Regular rate and rhythm without murmurs, gallops, or rubs. S1 and S2 no S3 or S4 RESPIRATORY: Coarse breath sounds bilaterally With rhonchi. Breath sounds equal bilaterally. No wheezes, rales GASTROINTESTINAL: Abdomen soft, non-tender, nondistended. No hepato-splenomegaly , or palpable masses. No guarding. MUSCULOSKELETAL: Extremities without clubbing, cyanosis, or edema. No joint tenderness, effusion, or edema noted. No calf tenderness. Negative Homans sign bilaterally. NEUROLOGICAL: Awake and alert. Cranial nerves II through XII intact. Motor and sensory grossly within normal limits. Five out of 5 muscle strength in all muscle groups. Normal speech. Insight and judgment is limited Mood and behavior somewhat appropriate Laboratory Laboratory Tests Test 10/26/17 11:45 10/26/17 11:47 10/26/17 13:45 10/26/17 14:00 White Blood Count 11.7 Red Blood Count 4.89 Hemoglobin 16.7 Hematocrit 47.3 Mean Corpuscular Volume 96.7 Mean Corpuscular Hemoglobin 34.2 Mean Corpuscular Hemoglobin Concent 35.3 Red Cell Distribution Width 13.0 Platelet Count 164 Mean Platelet Volume 10.0 Neutrophils (%) (Auto) 79.8 Lymphocytes (%) (Auto) 12.3 Monocytes (%) (Auto) 7.3 Eosinophils (%) (Auto) 0.4 Basophils (%) (Auto) 0.2 Neutrophils # (Auto) 9.4 Lymphocytes # (Auto) 1.4 Monocytes # (Auto) 0.9 Eosinophils # (Auto) 0.0 Basophils # (Auto) 0.0 CBC Comment DIFF FINAL Differential Comment Prothrombin Time 10.9 Prothromb Time International Ratio 1.1 Activated Partial Thromboplast Time 25.4 Blood Urea Nitrogen 10 Creatinine 0.73 Random Glucose 100 Total Protein 7.1 Albumin 2.8 Calcium Level 8.9 Alkaline Phosphatase 70 Aspartate Amino Transf (AST/SGOT) 27 Alanine Aminotransferase (ALT/SGPT) 22 Total Bilirubin 0.7 Sodium Level 135 Potassium Level 4.2 Chloride Level 99 Carbon Dioxide Level 26.8 Anion Gap 9 Estimat Glomerular Filtration Rate 109 Urine Color YELLOW Urine Turbidity HAZY Urine pH 8.5 Urine Specific [place] 1.023 Urine Protein 30 Urine Glucose (UA) NEG Urine Ketones TRACE Urine Occult Blood NEG Urine Nitrite NEG Urine Bilirubin NEG Urine Urobilinogen GREATER THAN 12.0 Urine Leukocyte Esterase NEG Urine WBC 1 Urine Mucus MANY Microscopic Urinalysis Comment CULT NOT INDICATED Lactic Acid Level 1.3 Date/Time Source Procedure Growth Status 10/26/17 13:45 Blood Peripheral Aerobic Blood Culture Pending Received 10/26/17 13:45 Blood Peripheral Anaerobic Blood Culture Pending Received 10/26/17 11:45 Nasal Washing Influenza Types A,B Antigen (FREDERICK) - Final NEGATIVE FOR FLU A AND B ANTIGEN.... Complete Result Diagram: 10/26/17 1145 10/26/17 1145 Imaging Last Impressions Chest X-Ray 10/26/17 1132 Signed Impressions: Service Date/Time: Thursday, October 26, 2017 12:31 - CONCLUSION: 1. Patchy bilateral airspace disease most characteristic of bronchopneumonia. Remote right 11th rib fracture. MD Marlene Paigei VTE Risk Assessment Caprini VTE Risk Assessment: Mod/High Risk (score >= 2) Caprini Risk Assessment Model Point Value = 1 Point Value = 2 Point Value = 3 Point Value = 5 Age 41-60 Minor surgery BMI > 25 kg/m2 Swollen legs Varicose veins or History of unexplained or recurrent spontaneous Oral contraceptives or hormone replacement Sepsis (< 1 month) Serious lung disease, including pneumonia (< 1 month) Abnormal pulmonary function Acute myocardial infarction Congestive heart failure (< 1 month) History of inflammatory bowel disease Medical patient at bed rest Age 61-74 Arthroscopic surgery Major open surgery (> 45 min) Laparoscopic surgery (> 45 min) Malignancy Confined to bed (> 72 hours) Immobilizing plaster cast Central venous access Age >= 75 History of VTE Family history of VTE Factor V Leiden Prothrombin [id number] Lupus anticoagulant Anticardiolipin antibodies Elevated serum homocysteine Heparin-induced thrombocytopenia Other congenital or acquired thrombophilia Stroke (< 1 month) Elective arthroplasty Hip, pelvis, or leg fracture Acute spinal cord injury (< 1 month) Prophylaxis Regimen Total Risk Factor Score Risk Level Prophylaxis Regimen 0-1 Low Early ambulation 2 Moderate Order ONE of the following: *Sequential Compression Device (SCD) *Heparin 5000 units SQ BID 3-4 Higher Order ONE of the following medications: *Heparin 5000 units SQ TID *Enoxaparin/Lovenox 40 mg SQ daily (WT < 150 kg, CrCl > 30 mL/min) *Enoxaparin/Lovenox 30 mg SQ daily (WT < 150 kg, CrCl > 10-29 mL/min) *Enoxaparin/Lovenox 30 mg SQ BID (WT < 150 kg, CrCl > 30 mL/min) AND/OR *Sequential Compression Device (SCD) 5 or more Highest Order ONE of the following medications: *Heparin 5000 units SQ TID (Preferred with Epidurals) *Enoxaparin/Lovenox 40 mg SQ daily (WT < 150 kg, CrCl > 30 mL/min) *Enoxaparin/Lovenox 30 mg SQ daily (WT < 150 kg, CrCl > 10-29 mL/min) *Enoxaparin/Lovenox 30 mg SQ BID (WT < 150 kg, CrCl > 30 mL/min) AND *Sequential Compression Device (SCD) Assessment and Plan Problem List: (1) Alcohol abuse ICD Code: F10.10 - Alcohol abuse, uncomplicated (2) Tobacco abuse ICD Code: Z72.0 - Tobacco use (3) Anxiety ICD Code: F41.9 - Anxiety disorder, unspecified (4) Bilateral pneumonia ICD Code: J18.9 - Pneumonia, unspecified organism Status: Acute (5) Hypoxia ICD Code: R09.02 - Hypoxemia Status: Acute Assessment and Plan Bilateral pneumonia/bronchitis continue on Zithromax and Rocephin IV with duo nebs and Mucinex and incentive spirometry as well as Solu-Medrol Tobacco abuse nicotine patch COPD see above continue nicotine patch Anxiety continue on Klonopin 0.5 mg by mouth twice a day Alcohol abuse continue on multivitamin thiamine and folic acid states he is no longer drinking Hypoxia continue on oxygen with incentive spirometry antibiotics Mucinex duo nebs and steroids DVT prophylaxis with Lovenox GI prophylaxis with Pepcid Code Status Full code Discussed Condition With Family and patient and RN and emergency room physician Physician Certification 2 Midnight Certification Type: Admission for Inpatient Services Order for Inpatient Services The services are ordered in accordance with Medicare regulations or non- Medicare payer requirements, as applicable. In the case of services not specified as inpatient-only, they are appropriately provided as inpatient services in accordance with the 2-midnight benchmark. Estimated LOS (days): 3 3 days is the estimated time the patient will need to remain in the hospital, assuming treatment plan goals are met and no additional complications. Post-Hospital Plan: Not yet determined Problem Qualifiers (1) Bilateral pneumonia: Qualified Codes: J18.9 - Pneumonia, unspecified organism Nick Carrizales DO Oct 26, 2017 15:05
[2017-10-26] MEDS: FAMOTIDINE 20 MG TAB PO SCH ×2 (16:08→20:07)
[2017-10-26] MEDS: SODIUM CHLORIDE 0.9% FLUSH 10 ML FLUSH IV FLUSH SCH (20:04)
[2017-10-26] MEDS: DOCUSATE SODIUM 50 MG/SENNA 8.6 MG TAB PO SCH (20:07)
[2017-10-26] MEDS: clonazePAM 0.5 MG TAB PO SCH (20:10)
[2017-10-26 20:43] LABS: TROPONIN I LESS THAN 0.02 NG/ML (0.02-0.05)
[2017-10-26] MEDS ORDERED: SODIUM CHLORIDE 0.9% FLUSH 10 ML FLUSH IV FLUSH SCH (21:00)
[2017-10-27] VITALS (11 sets, daily range): BP systolic 120–145; BP diastolic 63–78; PULSE 58–94; RESP 16–22; TEMP 97.6–98.3; O2SAT 92–97
[2017-10-27] MEDS: SODIUM CHLOR 0.9% 1000 ML INJ 1,000 ML IV SCH ×4 (00:56→20:42)
[2017-10-27] MEDS: RESP: ALBUTEROL 2.5 MG/IPRATROPIUM 0.5 MG NEB (SCH) INH ×4 (03:21→21:13)
[2017-10-27 06:53] LABS: BASOPHIL % 0.1 % (0.0-2.0); HEMOGLOBIN 14.3 GM/DL (13.0-17.0); LYMPH % 12.2 % (9.0-44.0); LYMPHOCYTE # 1.2 TH/MM3 (1.0-4.8); MEAN CORPUSCULAR HEMOGLOBIN 33.9 PG (27.0-34.0); MEAN CORPUSCULAR HGB CONC 34.9 % (32.0-36.0); MEAN PLATELET VOLUME 10.1 FL (7.0-11.0); MONO % 3.9 % (0.0-8.0); MONOCYTE # 0.4 TH/MM3 (0-0.9); NEUT % 83.8 % (16.0-70.0); PLATELET COUNT 127 TH/MM3 (150-450); RED BLOOD COUNT 4.23 MIL/MM3 (4.50-5.90); RED CELL DISTRIBUTION WIDTH 12.7 % (11.6-17.2); WHITE BLOOD COUNT 9.6 TH/MM3 (4.0-11.0)
[2017-10-27 07:39] LABS: ALBUMIN 2.5 GM/DL (3.4-5.0); AST (GOT) 23 U/L (15-37); BLOOD UREA NITROGEN 15 MG/DL (7-18); CALCIUM 8.5 MG/DL (8.5-10.1); CHLORIDE 107 MEQ/L (98-107); CREATININE 0.63 MG/DL (0.60-1.30); GLOMERULAR FILTRATION RATE 129 ML/MIN (>89); GLUCOSE,RANDOM 147 MG/DL (74-106); MAGNESIUM 1.9 MG/DL (1.5-2.5); SODIUM (NA) 139 MEQ/L (136-145)
[2017-10-27 07:44] LABS: ALKALINE PHOSPHATASE 61 U/L (45-117); ALT (GPT) 20 U/L (12-78); PHOSPHORUS 3.5 MG/DL (2.5-4.9); TOTAL BILIRUBIN ADULT 0.3 MG/DL (0.2-1.0); TOTAL PROTEIN 6.4 GM/DL (6.4-8.2)
[2017-10-27] MEDS: REMOVE OLD PATCH T-DERMAL SCH (09:00)
[2017-10-27] MEDS: SODIUM CHLORIDE 0.9% FLUSH 10 ML FLUSH IV FLUSH SCH ×2 (09:00→20:42)
[2017-10-27] MEDS: MULTIVITAMIN TAB PO SCH (09:54)
[2017-10-27] MEDS: NICOTINE 14 MG/24 HR PATCH T-DERMAL SCH (09:54)
[2017-10-27] MEDS: FOLIC ACID 1 MG TAB PO SCH (09:55)
[2017-10-27] MEDS: guaiFENesin E.R. 600 MG TAB PO SCH ×2 (09:55→20:44)
[2017-10-27] MEDS: DOCUSATE SODIUM 50 MG/SENNA 8.6 MG TAB PO SCH ×2 (09:55→20:44)
[2017-10-27] MEDS: clonazePAM 0.5 MG TAB PO SCH ×2 (09:55→20:44)
[2017-10-27] MEDS: THIAMINE HCL 100 MG TAB PO SCH (09:55)
[2017-10-27] MEDS: FAMOTIDINE 20 MG TAB PO SCH ×2 (09:55→20:44)
--- NOTE | 2017-10-27 10:14 | EKG ---
Date Performed: 10/26/2017 Time Performed: 20:28:25 PTAGE: 61 years EKG: Sinus rhythm NORMAL ECG PREVIOUS TRACING : 10/26/2017 14.22 DOCTOR: Tyshawn Ayers Interpretating Date/Time 10/27/2017 10:12:37
--- NOTE | 2017-10-27 10:54 | HHI.PR ---
Subjective Remarks Follow up Bilateral pneumonia with respiratory failure with Hypoxia 10/27/17-patient seen and examined, reports improvement of shortness of breath as well as cough production since admission. Currently afebrile. Objective Vitals Vital Signs Date Time Temp Pulse Resp B/P (MAP) Pulse Ox O2 Delivery O2 Flow Rate FiO2 10/27/17 09:16 97 Nasal Cannula 3.00 10/27/17 08:08 98.2 94 16 145/78 (100) 94 10/27/17 07:45 Nasal Cannula 3.00 10/27/17 04:06 74 10/27/17 04:00 98.3 65 22 125/73 (90) 92 10/27/17 03:25 94 Nasal Cannula 3.00 10/27/17 00:02 65 10/27/17 00:00 98.1 65 22 120/63 (82) 93 10/26/17 20:02 79 10/26/17 20:00 97.8 81 22 140/70 (93) 93 10/26/17 19:30 Nasal Cannula 4.00 10/26/17 16:00 97.9 74 20 124/69 (87) 96 10/26/17 15:08 81 21 122/69 (86) 96 Nasal Cannula 4.00 10/26/17 14:55 81 21 122/69 (86) 96 Nasal Cannula 4.00 10/26/17 13:55 81 20 121/65 (83) 94 Nasal Cannula 4.00 10/26/17 13:22 92 Nasal Cannula 4.00 10/26/17 13:20 87 Room Air 10/26/17 11:33 93 Room Air 10/26/17 11:18 22 10/26/17 11:09 98.7 82 14 150/79 (102) 90 I/O 10/26/17 10/26/17 10/26/17 10/27/17 10/27/17 10/27/17 06:59 14:59 22:59 06:59 14:59 22:59 Intake Total 1000 ml Balance 1000 ml Intake IV Total 1000 ml Result Diagram: 10/27/17 0551 10/27/17 0551 Imaging Last Impressions Chest X-Ray 10/26/17 1132 Signed Impressions: Service Date/Time: Thursday, October 26, 2017 12:31 - CONCLUSION: 1. Patchy bilateral airspace disease most characteristic of bronchopneumonia. Remote right 11th rib fracture. Benny Doll MD Objective Remarks GENERAL: NAD SKIN: Warm and dry. HEAD: Normocephalic. EYES: No scleral icterus. No injection or drainage. NECK: Supple, trachea midline. No JVD or lymphadenopathy. CARDIOVASCULAR: Regular rate and rhythm without murmurs, gallops, or rubs. RESPIRATORY: Breath sounds decrease bilaterally. No accessory muscle use. GASTROINTESTINAL: Abdomen soft, non-tender, nondistended. MUSCULOSKELETAL: No cyanosis, or edema. BACK: Nontender without obvious deformity. No CVA tenderness. A/P Problem List: (1) Bilateral pneumonia ICD Code: J18.9 - Pneumonia, unspecified organism Status: Acute (2) Alcohol abuse ICD Code: F10.10 - Alcohol abuse, uncomplicated (3) Tobacco abuse ICD Code: Z72.0 - Tobacco use (4) Anxiety ICD Code: F41.9 - Anxiety disorder, unspecified (5) Hypoxia ICD Code: R09.02 - Hypoxemia Status: Acute Assessment and Plan 61-year-old man with Bilateral pneumonia/bronchitis Currently on Zithromax and Rocephin IV with duo nebs and Mucinex and incentive spirometry as well as Solu-Medrol Tobacco abuse Continue with nicotine patch COPD see above continue nicotine patch Anxiety continue on Klonopin 0.5 mg by mouth twice a day Alcohol abuse continue on multivitamin thiamine and folic acid Hypoxia Improving and continue on oxygen with incentive spirometry antibiotics Mucinex duo nebs and steroids DVT prophylaxis: Lovenox GI prophylaxis: Pepcid Problem Qualifiers (1) Bilateral pneumonia: Qualified Codes: J18.9 - Pneumonia, unspecified organism Kyle Gama MD Oct 27, 2017 10:54
[2017-10-27] MEDS: cefTRIAXone INJ 1,000 MG in SODIUM CHLORIDE 0.9% INJ 100 ML IV SCH (12:05)
--- NOTE | 2017-10-27 12:30 | EKG ---
Date Performed: 10/26/2017 Time Performed: 14:22:14 PTAGE: 61 years EKG: Sinus rhythm POSSIBLE LEFT ATRIAL ENLARGEMENT BORDERLINE ECG PREVIOUS TRACING : 02/28/2017 23.17 DOCTOR: Tyshawn Ayers Interpretating Date/Time 10/27/2017 12:30:05
[2017-10-27] MEDS: AZITHROMYCIN INJ 500 MG in SODIUM CHLOR 0.9% 250 ML INJ 250 ML IV SCH (13:44)
[2017-10-27] MEDS: ENOXAPARIN SODIUM 40 MG/0.4 ML SYRINGE SQ SCH (15:35)
[2017-10-27 16:10] LABS: HEMOGLOBIN A1C 5.3 % (4.3-6.0)
[2017-10-27] MEDS: methylPREDNISolone SOD SUCC 40 MG/1 ML VIAL IV PUSH SCH (20:45)
[2017-10-28] VITALS (9 sets, daily range): BP systolic 124–171; BP diastolic 70–80; PULSE 50–76; RESP 10–20; TEMP 97.5–98.4; O2SAT 92–96
[2017-10-28] MEDS: SODIUM CHLOR 0.9% 1000 ML INJ 1,000 ML IV SCH ×3 (00:45→11:27)
[2017-10-28] MEDS: RESP: ALBUTEROL 2.5 MG/IPRATROPIUM 0.5 MG NEB (SCH) INH ×4 (04:43→21:11)
[2017-10-28] MEDS: clonazePAM 0.5 MG TAB PO SCH ×2 (08:55→21:23)
[2017-10-28] MEDS: methylPREDNISolone SOD SUCC 40 MG/1 ML VIAL IV PUSH SCH (08:55)
[2017-10-28] MEDS: guaiFENesin E.R. 600 MG TAB PO SCH ×2 (08:56→21:23)
[2017-10-28] MEDS: FOLIC ACID 1 MG TAB PO SCH (08:56)
[2017-10-28] MEDS: FAMOTIDINE 20 MG TAB PO SCH ×2 (08:56→21:23)
[2017-10-28] MEDS: MULTIVITAMIN TAB PO SCH (08:56)
[2017-10-28] MEDS: DOCUSATE SODIUM 50 MG/SENNA 8.6 MG TAB PO SCH ×2 (08:56→21:23)
[2017-10-28] MEDS: THIAMINE HCL 100 MG TAB PO SCH (08:56)
[2017-10-28] MEDS: SODIUM CHLORIDE 0.9% FLUSH 10 ML FLUSH IV FLUSH SCH ×2 (09:00→21:25)
[2017-10-28] MEDS: NICOTINE 14 MG/24 HR PATCH T-DERMAL SCH (09:00)
[2017-10-28] MEDS: REMOVE OLD PATCH T-DERMAL SCH (09:10)
--- NOTE | 2017-10-28 10:47 | HHI.PR ---
Subjective Remarks Follow up Bilateral pneumonia with respiratory failure with Hypoxia 10/27/17-patient seen and examined, reports improvement of shortness of breath as well as cough production since admission. Currently afebrile. 10/28/17-patient seen and examined, denies any significant improvement in his condition as he is still coughing. Reports decreased appetite. Currently afebrile Objective Vitals Vital Signs Date Time Temp Pulse Resp B/P (MAP) Pulse Ox O2 Delivery O2 Flow Rate FiO2 10/28/17 09:43 Nasal Cannula 3.00 10/28/17 08:18 98.0 73 20 154/80 (104) 93 10/28/17 06:54 97.9 50 16 145/74 (97) 95 10/28/17 00:26 98.3 60 16 124/70 (88) 96 10/28/17 00:00 Nasal Cannula 3.00 10/27/17 20:33 98.0 58 16 138/75 (96) 96 10/27/17 20:00 Nasal Cannula 3.00 10/27/17 18:08 97.9 68 16 132/68 (89) 94 10/27/17 15:31 93 Nasal Cannula 3.00 10/27/17 12:08 97.6 66 16 128/66 (86) 93 I/O 10/27/17 10/27/17 10/27/17 10/28/17 10/28/17 10/28/17 07:00 15:00 23:00 07:00 15:00 23:00 Intake Total 420 ml 720 ml Balance 420 ml 720 ml Intake Oral 420 ml 720 ml # Voids 5 3 # Bowel Movements 2 Result Diagram: 10/27/17 0551 10/27/17 0551 Objective Remarks GENERAL: NAD SKIN: Warm and dry. HEAD: Normocephalic. EYES: No scleral icterus. No injection or drainage. NECK: Supple, trachea midline. No JVD or lymphadenopathy. CARDIOVASCULAR: Regular rate and rhythm without murmurs, gallops, or rubs. RESPIRATORY: Breath sounds decrease bilaterally. No accessory muscle use. GASTROINTESTINAL: Abdomen soft, non-tender, nondistended. MUSCULOSKELETAL: No cyanosis, or edema. BACK: Nontender without obvious deformity. No CVA tenderness. A/P Problem List: (1) Bilateral pneumonia ICD Code: J18.9 - Pneumonia, unspecified organism Status: Acute (2) Alcohol abuse ICD Code: F10.10 - Alcohol abuse, uncomplicated (3) Tobacco abuse ICD Code: Z72.0 - Tobacco use (4) Anxiety ICD Code: F41.9 - Anxiety disorder, unspecified (5) Hypoxia ICD Code: R09.02 - Hypoxemia Status: Acute Assessment and Plan 61-year-old man with Bilateral pneumonia/bronchitis Currently on Zithromax and Rocephin IV with duo nebs and Mucinex and incentive spirometry as well as Solu-Medrol Maintain oxygen saturation above 92% Tobacco abuse Continue with nicotine patch COPD see above continue nicotine patch Anxiety continue on Klonopin 0.5 mg by mouth twice a day Alcohol abuse continue on multivitamin thiamine and folic acid Hypoxia Improving and continue on oxygen with incentive spirometry antibiotics Mucinex duo nebs and steroids DVT prophylaxis: Lovenox GI prophylaxis: Pepcid Problem Qualifiers (1) Bilateral pneumonia: Qualified Codes: J18.9 - Pneumonia, unspecified organism Kyle Gama MD Oct 28, 2017 10:47
[2017-10-28] MEDS: AZITHROMYCIN INJ 500 MG in SODIUM CHLOR 0.9% 250 ML INJ 250 ML IV SCH (11:28)
[2017-10-28] MEDS ORDERED: guaiFENesin/CODEINE SYRUP 200 MG/20 MG/10 ML CUP PO PRN (13:00)
[2017-10-28] MEDS: cefTRIAXone INJ 1,000 MG in SODIUM CHLORIDE 0.9% INJ 100 ML IV SCH (13:10)
[2017-10-28] MEDS: ENOXAPARIN SODIUM 40 MG/0.4 ML SYRINGE SQ SCH (13:14)
[2017-10-28] MEDS: BENZONATATE 100 MG CAP PO PRN ×2 (14:56→21:24)
[2017-10-28] MEDS ORDERED: methylPREDNISolone SOD SUCC 40 MG/1 ML VIAL IV PUSH SCH (21:00)
[2017-10-29] MEDS ORDERED: AZITHROMYCIN 250 MG TAB PO SCH (09:00)
--- NOTE | 2017-11-02 12:11 | HHI.DS ---
Discharge Summary Admission Date Oct 26, 2017 at 14:40 Discharge Date: Oct 29, 2017 Admitting Diagnosis PNEUMONIA/Hypoxia (1) Bilateral pneumonia ICD Code: J18.9 - Pneumonia, unspecified organism Status: Acute (2) Alcohol abuse ICD Code: F10.10 - Alcohol abuse, uncomplicated (3) Tobacco abuse ICD Code: Z72.0 - Tobacco use (4) Anxiety ICD Code: F41.9 - Anxiety disorder, unspecified (5) Hypoxia ICD Code: R09.02 - Hypoxemia Status: Acute Procedures none Brief History - From Admission Patient is a 61-year-old male who presents to the emergency department here at [facility] with several day history of increasing cough, shortness of breath, and generalized muscle aches and pains as well as weakness. Patient has been smoking for many years. Has productive cough with greenish yellowish sputum. Has had decreased sleep secondary to this cough and congestion. He has had some emesis this morning after coughing extensively. Patient also has been having chills and HAS been taking ibuprofen and cough medications without improvement. Denies any abdominal pain or chest pain. Has history of MRSA She will be admitted for bilateral pneumonia and started on antibiotics with Rocephin and Zithromax continue on DuoNeb some Mucinex and incentive spirometry PE at Discharge GENERAL: NAD SKIN: Warm and dry. HEAD: Normocephalic. EYES: No scleral icterus. No injection or drainage. NECK: Supple, trachea midline. No JVD or lymphadenopathy. CARDIOVASCULAR: Regular rate and rhythm without murmurs, gallops, or rubs. RESPIRATORY: Breath sounds decrease bilaterally. No accessory muscle use. GASTROINTESTINAL: Abdomen soft, non-tender, nondistended. MUSCULOSKELETAL: No cyanosis, or edema. BACK: Nontender without obvious deformity. No CVA tenderness. Hospital Course While in the hospital and prior to signing AMA, patient was treated for: Bilateral pneumonia/bronchitis Treated with Zithromax and Rocephin IV with duo nebs and Mucinex and incentive spirometry as well as Solu-Medrol Maintain oxygen saturation above 92% Tobacco abuse Treated with nicotine patch COPD see above continue nicotine patch Anxiety Treated with Klonopin 0.5 mg by mouth twice a day Alcohol abuse continue on multivitamin thiamine and folic acid Hypoxia Improving and continue on oxygen with incentive spirometry antibiotics Mucinex duo nebs and steroids DVT prophylaxis: Lovenox GI prophylaxis: Pepcid Pt Condition on Discharge: Fair Discharge Disposition: Discharge Home Discharge Time: <= 30 minutes Kyle Gama MD Nov 02, 2017 12:11
== END 2017-10-29 01:00 | disposition left against medical advice (07) | DRG 194 ==
LOC: NEPD 11:05 → NEDA 14:40 → N04B 15:11
PROVIDERS: ADMIT Hospitalist; ATTEND Hospitalist
PROC: 3E0F7GC Introduction of Other Therapeutic Substance into Respiratory Tract, Via Natural or Artificial Opening (ICD-10-PCS; principal; 2017-10-26)
DX: J18.9 Pneumonia, unspecified organism (principal); J44.0 Chronic obstructive pulmonary disease with (acute) lower respiratory infection; R09.02 Hypoxemia; B19.20 Unspecified viral hepatitis C without hepatic coma; F17.210 Nicotine dependence, cigarettes, uncomplicated; R11.10 Vomiting, unspecified; Z86.14 Personal history of Methicillin resistant Staphylococcus aureus infection; Z88.6 Allergy status to analgesic agent; F41.9 Anxiety disorder, unspecified; F10.10 Alcohol abuse, uncomplicated; Z83.3 Family history of diabetes mellitus; Z81.1 Family history of alcohol abuse and dependence
CPT/HCPCS: 71046; 76937; 80053; 81001; 82550; 83036; 83605; 83735; 84100; 84439; 84443; 84484; 85025; 85610; 85730; 87040; 87449; 87804; 93005; 94150; 94640; 94664; 96361; 96374; 96375; J0456; J0696; J1650; J2920; J2930; J7030; J7050